=== PATIENT | female | born 1990 | race American Indian/Alaskan Native ===

== ENCOUNTER 2016-11-03 12:29 | Emergency (ER) | payer SELFPAY ==
[2016-11-03 14:10] LABS: Basophils % (Auto) 1.2 % (0.0-1.8); Eosinophils % (Auto) 1.5 % (0.0-4.3); Hematocrit 36.6 % (30.3-42.9); Hemoglobin 11.8 gm/dl (10.1-14.3); Mean Corpuscular HGB Conc 32 % (30-34); Mean Corpuscular Volume 78 fl (79-97); Platelet Count 304 K/mm3 (140-440); Red Cell Distribution Width 15.8 % (13.2-15.2); White Blood Count 5.5 K/mm3 (4.5-11.0)
[2016-11-03 14:14] LABS: Mean Corpuscular Hemoglobin 25 pg (28-32)
[2016-11-03 14:21] LABS: Alanine Aminotransferase 8 units/L (7-56); Albumin 3.7 g/dL (3.9-5); Albumin/Globulin Ratio 0.9 %; Alkaline Phosphatase 65 units/L (35-129); Anion Gap 14 mmol/L; BUN/Creatinine Ratio 11.66; Blood Urea Nitrogen 7 mg/dL (7-17); Carbon Dioxide 22 mmol/L (22-30); Chloride 103.5 mmol/L (98-107); Glucose 90 mg/dL (65-100); Lipase 39 units/L (13-60); Potassium 3.9 mmol/L (3.6-5.0); Sodium 136 mmol/L (137-145); Total Protein 7.7 g/dL (6.3-8.2)
--- NOTE | 2016-11-03 15:41 | Ultrasound Report ---
ULTRASOUND OB LESS THAN 14 WEEKS - TRANSABDOMINAL AND TRANSVAGINAL INDICATION: Abdominal pain. Positive uterine test. COMPARISON: None similar at this institution. FINDINGS: Transabdominal and transvaginal pelvic sonography performed in this patient with LMP of 09/16/2016 and estimated menstrual age of 6 weeks and 6 days. An anteverted, gravid uterus measuring approximately 9.3 x 5.1 x 6.7 cm demonstrates a single, live intrauterine gestation with heart rate of 109 beats per minute. Cervix appears closed. Small nabothian cyst. Yolk sac measures 3 mm. Mean crown-rump length of 0.4 cm corresponds to 6 weeks and 1 day. Unremarkable right ovary measures 2.6 x 1.4 x 2.6 cm. Left ovary is 4.2 x 2.3 x 2.7 cm with a 2.2 cm complex/hemorrhagic cyst or corpus luteum. Small subchorionic hemorrhage questioned. CONCLUSION: 1. Single, live intrauterine gestation with an ultrasound estimated age of 6 weeks and 1 day and ZACHARY of 06/28/2017. 2. Few other findings, as above. Thank you for the opportunity to participate in this patient's care.
[2016-11-03 19:19] VITALS: BP 114/76
== END 2016-11-03 19:18 | disposition home or self-care (01) ==
LOC: ED 12:29
DX: Z34.91 Encounter for supervision of normal pregnancy, unspecified, first trimester (principal); Z3A.01 Less than 8 weeks gestation of pregnancy
CPT/HCPCS: 36415; 76801; 76817; 80053; 83690; 84702; 84703; 85025

== ENCOUNTER 2016-12-06 23:31 | Emergency (ER) | payer SELFPAY ==
[2016-12-07 00:48] LABS: Basophils % (Auto) 1.2 % (0.0-1.8); Eosinophils % (Auto) 3.2 % (0.0-4.3); Hematocrit 36.3 % (30.3-42.9); Hemoglobin 11.8 gm/dl (10.1-14.3); Mean Corpuscular HGB Conc 33 % (30-34); Mean Corpuscular Volume 78 fl (79-97); Platelet Count 301 K/mm3 (140-440); Red Blood Count 4.64 M/mm3 (3.65-5.03); Red Cell Distribution Width 17.2 % (13.2-15.2); White Blood Count 6.8 K/mm3 (4.5-11.0)
[2016-12-07 00:50] LABS: Mean Corpuscular Hemoglobin 26 pg (28-32)
[2016-12-07 03:36] VITALS: BP 123/76
[2016-12-07 03:55] LABS: Bilirubin,Urine NEG (Negative); Blood,Urine LG (Negative); Ketones,Urine NEG (Negative); Leukocyte Esterase,Urine SM (Negative); Mucus,Urine FEW /HPF; Nitrite,Urine NEG (Negative); Protein,Urine <15 mg/dL mg/dL (Negative); Urobilinogen,Urine < 2.0 mg/dL (<2.0)
[2016-12-07] MEDS ORDERED: TYLENOL PO ONE (04:02)
--- NOTE | 2016-12-07 04:05 | Emergency Department Report ---
HPI - General Chief Complaint: Vaginal Bleeding Time Seen by Provider: 12/07/16 03:07 - [facility] HPI: Room 8 The patient is a 26-year-old female presenting with a chief complaint of vaginal bleeding. Patient states she is approximately 12 weeks and for the past 5-6 days she's had vaginal bleeding. The patient states for 2 days the bleeding was heavy but has now become order desk clerk. The patient states she does not use sanitary napkins. The patient states today she developed intermittent lower abdominal pain. History was obtained with the assistance of the language line for Guamanian translation Location: Pelvis Duration: 5-6 days Quality: Cramping Severity: Moderate Modifying factors: [see above] Context: [see above] Mode of transportation: [not driving] ED Past Medical Hx - Past Medical History Previous Medical History?: No - Surgical History Past Surgical History?: No - Family History Family history: no significant - Social History Smoking Status: Never Smoker Substance Use Type: None - Medications Home Medications: Home Medications Medication Instructions Recorded Confirmed Last Taken Type HYDROcodone/APAP 5-325 [[place] 1 - 2 each PO Q6HR PRN #14 tablet 12/07/16 Unknown Rx 5/325] Ibuprofen [Motrin 800 MG tab] 800 mg PO Q8HR PRN #20 tablet 12/07/16 Unknown Rx ED Review of Systems ROS: Stated complaint: VAGINAL BLEEDING/12WKS Other details as noted in HPI Comment: All other systems reviewed and negative Constitutional: denies: chills, fever Eyes: denies: eye pain, eye discharge, vision change ENT: denies: ear pain, throat pain Respiratory: denies: cough, shortness of breath, wheezing Cardiovascular: denies: chest pain, palpitations Endocrine: no symptoms reported Gastrointestinal: abdominal pain Genitourinary: abnormal menses Musculoskeletal: denies: back pain, joint swelling, arthralgia Skin: denies: rash, lesions Neurological: denies: headache, weakness, paresthesias Psychiatric: denies: anxiety, depression Hematological/Lymphatic: denies: easy bleeding, easy bruising Physical Exam - Physical Exam Vital Signs: Vital Signs 12/06/16 12/07/16 23:45 03:36 Temperature 98.6 F Pulse Rate 97 H 75 Respiratory 20 13 Rate Blood Pressure 125/80 Blood Pressure 123/76 [Left] O2 Sat by Pulse 100 100 Oximetry Physical Exam: GENERAL: The patient is well-developed well-nourished female lying on stretcher not appearing to be in acute distress. [] HEENT: Normocephalic. Atraumatic. Extraocular motions are intact. Patient has moist mucous membranes. NECK: Supple. Trachea midline CHEST/LUNGS: Clear to auscultation. There is no respiratory distress noted. HEART/CARDIOVASCULAR: Regular. There is no tachycardia. There is no gallop rub or murmur. ABDOMEN: Abdomen is soft, with mild suprapubic discomfort to palpation. Patient has normal bowel sounds. There is no abdominal distention. SKIN: There is no rash. There is no edema. There is no diaphoresis. And gait. MUSCULOSKELETAL: There is no evidence of acute injury. ED Course Vital Signs 12/06/16 12/07/16 23:45 03:36 Temperature 98.6 F Pulse Rate 97 H 75 Respiratory 20 13 Rate Blood Pressure 125/80 Blood Pressure 123/76 [Left] O2 Sat by Pulse 100 100 Oximetry ED Medical Decision Making - Lab Data Result diagrams: 12/07/16 00:15 Laboratory Tests 12/06/16 12/07/16 12/07/16 00:15 00:15 00:15 WBC 6.8 RBC 4.64 Hgb 11.8 Hct 36.3 MCV 78 L MCH 26 L MCHC 33 RDW 17.2 H Plt Count 301 Lymph % (Auto) 37.5 H [place] % (Auto) 9.8 H Eos % (Auto) 3.2 Baso % (Auto) 1.2 Lymph # 2.6 [place] # 0.7 Eos # 0.2 Baso # 0.1 Seg Neutrophils % 48.3 Seg Neutrophils # 3.3 HCG, Quant 2023 H Urine Color Urine Turbidity Urine pH Ur Specific [place] Urine Protein Urine Glucose (UA) Urine Ketones Urine Blood Urine Nitrite Urine Bilirubin Urine Urobilinogen Ur Leukocyte Esterase Urine WBC (Auto) Urine RBC (Auto) U Epithel Cells (Auto) Urine Mucus Blood Type B POSITIVE MICAH Antibody Screen Negative 12/07/16 03:36 WBC RBC Hgb Hct MCV MCH MCHC RDW Plt Count Lymph % (Auto) [place] % (Auto) Eos % (Auto) Baso % (Auto) Lymph # [place] # Eos # Baso # Seg Neutrophils % Seg Neutrophils # HCG, Quant Urine Color Yellow Urine Turbidity Clear Urine pH 6.0 Ur Specific [place] 1.015 Urine Protein <15 mg/dl Urine Glucose (UA) Neg Urine Ketones Neg Urine Blood Lg Urine Nitrite Neg Urine Bilirubin Neg Urine Urobilinogen < 2.0 Ur Leukocyte Esterase Sm Urine WBC (Auto) 8.0 H Urine RBC (Auto) 24.0 U Epithel Cells (Auto) 1.0 Urine Mucus Few Blood Type MICAH Antibody Screen - Radiology Data Radiology results: report reviewed (pelvic ultrasound), image reviewed (pelvic ultrasound) Pelvic ultrasound (read by radiologist)-empty intrauterine gestational sac corresponding to estimated gestational age of 8 weeks and 1 day. This is in the lower uterine segment. There is no detectable pole, yolk sac or cardiac activity. Blighted ovum is suspected. - Medical Decision Making I suspect the patient is having an inevitable /incomplete given the fact that the patient had cardiac activity seen on her previous ultrasound performed 11/03/2016 and at that time had a serum hCG of over 26,000 and now her ultrasound reveals an empty gestational sac without cardiac activity and an hCG just over 2000. This information was expressed to the patient with use of the which line translation for Guamanian. The patient verbalized understanding and no longer had any questions. The patient understands that she must follow-up with an [employer]ATIVE SERVICES [employer]ODUCER - Differential Diagnosis threatened , incomplete , spontaneous , UTI Critical care attestation.: If time is entered above; I have spent that time in minutes in the direct care of this critically ill patient, excluding procedure time. ED Disposition Clinical Impression: UTI (urinary tract infection), Inevitable spontaneous Disposition: - TO HOME OR SELFCARE Is pt being admited?: No Does the pt Need Aspirin: No Condition: Stable Instructions: Spontaneous Miscarriage (ED) Additional Instructions: Return to the emergency department immediately should you develop worsening symptoms, fever, inability to tolerate food or liquid or any other concerns. Prescriptions: HYDROcodone/APAP 5-325 [[place] 5/325] 1 - 2 each PO Q6HR PRN #14 tablet PRN Reason: Pain Ibuprofen [Motrin 800 MG tab] 800 mg PO Q8HR PRN #20 tablet PRN Reason: Pain Referrals: [facility] [Outside] - 3-5 Days KIAN TITUS MD [Staff Physician] - ANDREW (Dr. Titus is an CREATIVE SERVICES PRODUCER. Please follow up with her for further evaluation) Time of Disposition: 05:56
--- NOTE | 2016-12-07 04:25 | Ultrasound Report ---
FINAL REPORT PROCEDURE: US OB \T\lt; = 14 WEEKS FETUS TECHNIQUE: Real-time transabdominal sonography of the uterus, placenta, amniotic fluid, adnexa, and fetus was performed with image documentation. Measurements were obtained to determine age/size. M-mode Doppler was used to document heartbeat. CPT 83037 HISTORY: vaginal bleeding COMPARISON: No prior studies are available for comparison. FINDINGS: There is an intrauterine gestational sac in the lower uterine segment measuring 30 millimeters. This corresponds to an estimated gestational age of 8 weeks 1 day. However, no yolk sac, pole or cardiac activity is seen. This could be blighted ovum. Uterus measures 9.8 x 5.6 x 5.9 centimeters. Right ovary measures 2.5 x 2 x 1.5 centimeters. Left ovary measures 3 x 1.7 x 1.5 centimeters. There is no ovarian torsion or mass. There is no evidence of ectopic . There is no free pelvic fluid. IMPRESSION: Empty intrauterine gestational sac corresponding to estimated gestational age of 8 weeks and 1 day. This is in the lower uterine segment. There is no detectable pole, yolk sac or cardiac activity. Blighted ovum is suspected.
--- NOTE | 2016-12-07 05:40 | Ultrasound Report ---
FINAL REPORT PROCEDURE: US OB TRANSVAGINAL TECHNIQUE: Real-time transvaginal sonography of the uterus, placenta, amniotic fluid, adnexa, and fetus was performed with image documentation. Measurements were obtained to determine age/size. M-mode Doppler was used to document heartbeat. CPT 22909 HISTORY: vaginal bleeding COMPARISON: No prior studies are available for comparison. FINDINGS: There is an intrauterine gestational sac in the lower uterine segment measuring 30 millimeters. This corresponds to an estimated gestational age of 8 weeks 1 day. However, no yolk sac, pole or cardiac activity is seen. This could be blighted ovum. Uterus measures 9.8 x 5.6 x 5.9 centimeters. Right ovary measures 2.5 x 2 x 1.5 centimeters. Left ovary measures 3 x 1.7 x 1.5 centimeters. There is no ovarian torsion or mass. There is no evidence of ectopic . There is no free pelvic fluid. IMPRESSION: Empty intrauterine gestational sac corresponding to estimated gestational age of 8 weeks and 1 day. This is in the lower uterine segment. There is no detectable pole, yolk sac or cardiac activity. Blighted ovum is suspected.
== END 2016-12-07 06:24 | disposition home or self-care (01) ==
LOC: ED 23:31
DX: O23.41 Unspecified infection of urinary tract in pregnancy, first trimester (principal); Z3A.08 8 weeks gestation of pregnancy
CPT/HCPCS: 36415; 76801; 76817; 81001; 84702; 85025; 86850; 86900; 86901; 99284

== ENCOUNTER 2017-02-24 15:15 | Emergency (ER) | payer SELFPAY ==
[2017-02-24 17:07] LABS: Basophils % (Auto) 0.9 % (0.0-1.8); Eosinophils % (Auto) 5.1 % (0.0-4.3); Hematocrit 35.7 % (30.3-42.9); Hemoglobin 11.5 gm/dl (10.1-14.3); Mean Corpuscular HGB Conc 32 % (30-34); Mean Corpuscular Volume 76 fl (79-97); Platelet Count 329 K/mm3 (140-440); Red Blood Count 4.71 M/mm3 (3.65-5.03); Red Cell Distribution Width 15.9 % (13.2-15.2); White Blood Count 7.2 K/mm3 (4.5-11.0)
[2017-02-24 17:15] LABS: Mean Corpuscular Hemoglobin 24 pg (28-32)
--- NOTE | 2017-02-24 22:44 | Emergency Department Report ---
ED Female HPI - General Chief complaint: Vaginal Bleeding Stated complaint: , VAGINAL BLEEDING Time Seen by Provider: 02/24/17 22:42 Source: patient, family Mode of arrival: Ambulatory Limitations: Language Barrier - History of Present Illness Initial comments: 26-year-old female past medical history history of one miscarriage presents with complaint of vaginal spotting since yesterday morning with some intermittent clots. Patient denies fevers chills, dysuria or hematuria chest pain palpitations or back pain. States she has had some nausea. Accompanied by . Awake alert and oriented 3 not in acute distress. Last menstrual period January 08. Had a miscarriage earlier this year. States bleeding has decreased since yesterday. MD Complaint: vaginal bleeding, pelvic pain Onset/Timin -: days(s) Are you Now?: Yes Last Menstrual Period: 01/08/17 EDC: 10/15/17 Associated Symptoms: vaginal bleeding - Related Data Previous Rx's Medication Instructions Recorded Last Taken Type HYDROcodone/APAP 5-325 [[place] 1 - 2 each PO Q6HR PRN #14 tablet 12/07/16 Unknown Rx 5/325] Ibuprofen [Motrin 800 MG tab] 800 mg PO Q8HR PRN #20 tablet 12/07/16 Unknown Rx Doxylamine Succinate [Unisom] 25 mg PO QHS PRN #30 tablet 02/25/17 Unknown Rx Nida Root [Nida] 250 mg PO QDAY PRN #30 capsule 02/25/17 Unknown Rx Nitrofurantoin [place]/M-Cryst 100 mg PO Q12HR #14 capsule 02/25/17 Unknown Rx [Macrobid CAP] Pyridoxine HCl 25 mg PO Q8H PRN #90 tablet 02/25/17 Unknown Rx metroNIDAZOLE [Flagyl TAB] 500 mg PO Q12HR #14 tab 02/25/17 Unknown Rx Allergies Allergy/AdvReac Type Severity Reaction Status Date / Time No Known Allergies Allergy Verified 12/07/16 03:37 ED Review of Systems ROS: Stated complaint: , VAGINAL BLEEDING Other details as noted in HPI Constitutional: denies: chills, fever Eyes: denies: eye pain, eye discharge, vision change ENT: denies: ear pain, throat pain Respiratory: denies: cough, shortness of breath, wheezing Cardiovascular: denies: chest pain, palpitations Endocrine: no symptoms reported Gastrointestinal: denies: abdominal pain, nausea, diarrhea Genitourinary: as per HPI. denies: urgency, dysuria, discharge Musculoskeletal: denies: back pain, joint swelling, arthralgia Skin: denies: rash, lesions Neurological: denies: headache, weakness, paresthesias Psychiatric: denies: anxiety, depression Hematological/Lymphatic: denies: easy bleeding, easy bruising ED Past Medical Hx - Past Medical History Previous Medical History?: Yes Additional medical history: Miscarriage December 06, 2016 - Surgical History Past Surgical History?: No - Social History Smoking Status: Never Smoker Substance Use Type: None - Medications Home Medications: Home Medications Medication Instructions Recorded Confirmed Last Taken Type HYDROcodone/APAP 5-325 [[place] 1 - 2 each PO Q6HR PRN #14 tablet 12/07/16 Unknown Rx 5/325] Ibuprofen [Motrin 800 MG tab] 800 mg PO Q8HR PRN #20 tablet 12/07/16 Unknown Rx Doxylamine Succinate [Unisom] 25 mg PO QHS PRN #30 tablet 02/25/17 Unknown Rx Nida Root [Nida] 250 mg PO QDAY PRN #30 capsule 02/25/17 Unknown Rx Nitrofurantoin [place]/M-Cryst 100 mg PO Q12HR #14 capsule 02/25/17 Unknown Rx [Macrobid CAP] Pyridoxine HCl 25 mg PO Q8H PRN #90 tablet 02/25/17 Unknown Rx metroNIDAZOLE [Flagyl TAB] 500 mg PO Q12HR #14 tab 02/25/17 Unknown Rx ED Physical Exam - General Limitations: Language Barrier General appearance: alert, in no apparent distress - Head Head exam: Present: atraumatic, normocephalic - Eye Eye exam: Present: normal appearance, PERRL, EOMI - ENT ENT exam: Present: mucous membranes moist - Neck Neck exam: Present: normal inspection, full ROM - Respiratory Respiratory exam: Present: normal lung sounds bilaterally. Absent: respiratory distress - Cardiovascular Cardiovascular Exam: Present: regular rate, normal rhythm. Absent: systolic murmur, diastolic murmur, rubs, gallop - GI/Abdominal GI/Abdominal exam: Present: soft, normal bowel sounds - External exam: Present: normal external exam Speculum exam: Present: vaginal bleeding (scant amount of blood in vaginal vault ) Bi-manual exam: Present: normal bi-manual exam - Extremities Exam Extremities exam: Present: normal inspection - Back Exam Back exam: Present: normal inspection - Neurological Exam Neurological exam: Present: alert, oriented X3 - Psychiatric Psychiatric exam: Present: normal affect, normal mood - Skin Skin exam: Present: warm, dry, intact, normal color. Absent: rash ED Course Vital Signs 02/24/17 02/25/17 16:27 01:18 Temperature 97.8 F 99.1 F Pulse Rate 78 84 Respiratory 16 18 Rate Blood Pressure 118/75 Blood Pressure 118/74 [Right] O2 Sat by Pulse 100 99 Oximetry ED Medical Decision Making - Lab Data Result diagrams: 02/24/17 16:38 - Medical Decision Making A/P: , vaginal bleeding, morning sickness, BV, asymptomatic bacteuria in 1-ultrasound shows single live IUP with active heart rate 2-urinalysis unremarkable however has patient has trace leukocytes will treat empirically for possible asymptomatic bacteriuria. Case discussed with Dr. Molina 3-follow up with [facility] 4- I advised patient to return to the ED for heavy vaginal bleeding which persists abdominal pain and inability to tolerate any liquid or fluid by mouth, fevers and chills, dysuria patient and stated they understood my instructions Critical care attestation.: If time is entered above; I have spent that time in minutes in the direct care of this critically ill patient, excluding procedure time. ED Disposition Clinical Impression: Morning sickness, Vaginal bleeding in , Bacterial vaginosis Qualifiers: Weeks of gestation: less than 8 weeks Qualified Code(s): Z3A.01 - Less than 8 weeks gestation of Disposition: DC-01 TO HOME OR SELFCARE Is pt being admited?: No Does the pt Need Aspirin: No Condition: Stable Instructions: Threatened Miscarriage (ED), Morning Sickness (ED), (ED ), Bacterial Vaginosis (ED) Prescriptions: Doxylamine Succinate [Unisom] 25 mg PO QHS PRN #30 tablet PRN Reason: Nausea Nida Root [Nida] 250 mg PO QDAY PRN #30 capsule PRN Reason: Nausea metroNIDAZOLE [Flagyl TAB] 500 mg PO Q12HR #14 tab Nitrofurantoin [place]/M-Cryst [Macrobid CAP] 100 mg PO Q12HR #14 capsule Pyridoxine HCl 25 mg PO Q8H PRN #90 tablet PRN Reason: Nausea Referrals: [facility] [Provider Group] - 3-5 Days [facility] [Provider Group] - 3-5 Days Forms: Accompanied Note, Work/School Release Form(ED), STI Treatment and Prevention
--- NOTE | 2017-02-25 00:07 | Ultrasound Report ---
FINAL REPORT PROCEDURE: US OB TRANSVAGINAL TECHNIQUE: Real-time transabdominal and transvaginal sonography of the uterus, placenta, amniotic fluid, adnexa, and fetus was performed with image documentation. Measurements were obtained to determine age/size. M-mode Doppler was used to document heartbeat. CPT 50767 and 57260 HISTORY: 4 weeks preg w/vag bleed and crampy pain COMPARISON: No prior studies are available for comparison. FINDINGS: ADDITIONAL GESTATION: None. CRL: 8 mm, which corresponds to a gestational age of: 6 weeks, 5 days. Yolk Sac: Normal. Embryonic Cardiac Activity: 135 beats per minute Gestational Sac: Normal. Amniotic fluid: Normal. Cervix: Normal. Right Ovary: There is a dominant complex cyst measuring 24 millimeters Left Ovary: Not visualized on this study Estimated delivery date: 10/15/2017 Uterus and adnexa: Normal. IMPRESSION: 1. Single live intrauterine gestation at approximately 6 weeks, 5 days. 2. EDC by US 10/15/2017 3. Complete anatomic survey at 18-20 weeks suggested.
--- NOTE | 2017-02-25 00:08 | Ultrasound Report ---
FINAL REPORT PROCEDURE: Ultrasound obstetrical transabdominal and transvaginal TECHNIQUE: Real-time transabdominal and transvaginal sonography of the uterus, placenta, amniotic fluid, adnexa, and fetus was performed with image documentation. Measurements were obtained to determine age/size. M-mode Doppler was used to document heartbeat. CPT 63403 and 94710 HISTORY: 4 weeks preg w/vag bleed and crampy pain COMPARISON: No prior studies are available for comparison. FINDINGS: ADDITIONAL GESTATION: None. CRL: 8 mm, which corresponds to a gestational age of: 6 weeks, 5 days. Yolk Sac: Normal. Embryonic Cardiac Activity: 135 beats per minute Gestational Sac: Normal. Amniotic fluid: Normal. Cervix: Normal. Right Ovary: There is a dominant complex cyst measuring 24 millimeters Left Ovary: Not visualized on this study Estimated delivery date: 10/15/2017 Uterus and adnexa: Normal. IMPRESSION: 1. Single live intrauterine gestation at approximately 6 weeks, 5 days. 2. EDC by US 10/15/2017 3. Complete anatomic survey at 18-20 weeks suggested.
[2017-02-25 00:38] LABS: Bilirubin,Urine NEG (Negative); Blood,Urine SM (Negative); Ketones,Urine NEG (Negative); Leukocyte Esterase,Urine TR (Negative); Mucus,Urine FEW /HPF; Nitrite,Urine NEG (Negative); Protein,Urine <15 mg/dL mg/dL (Negative)
[2017-02-25 01:20] VITALS: BP 118/74
== END 2017-02-25 02:05 | disposition home or self-care (01) ==
LOC: ED 15:15
DX: O46.91 Antepartum hemorrhage, unspecified, first trimester (principal); O23.591 Infection of other part of genital tract in pregnancy, first trimester; N76.0 Acute vaginitis; Z3A.01 Less than 8 weeks gestation of pregnancy
CPT/HCPCS: 36415; 76801; 76817; 81001; 84702; 85025; 86850; 86900; 86901; 87086; 87210; 87591; 99284

== ENCOUNTER 2017-10-12 12:24 | Inpatient (IN) | payer SELFPAY ==
--- NOTE | 2017-10-12 15:00 | Ultrasound Report ---
ULTRASOUND BIOPHYSICAL PROFILE: History: well being Technique: Transabdominal ultrasound with Doppler interrogation. 2 - breathing movements 2 - movements 2 - posture and tone 2 - Qualitative amniotic fluid volume 8 - TOTAL SCORE OF POSSIBLE 8 Heart Rate (bpm) 160
--- NOTE | 2017-10-12 15:00 | Ultrasound Report ---
ULTRASOUND OB LIMITED History: well being Technique: Transabdominal ultrasound with Doppler interrogation. Gestation: Single Position: Cephalic Amniotic Fluid: Decreased MEREDITH = 5.2 cm Heart Rate: 160 BPM
[2017-10-12] MEDS ORDERED: BRETHINE SUB-Q PRN (15:35)
[2017-10-12] MEDS ORDERED: ePHEDrine SULFATE IV PRN (15:35)
[2017-10-12] MEDS ORDERED: NARCAN 0.4 MG/1 ML IV PRN (15:35)
[2017-10-12] MEDS ORDERED: PHENERGAN PO PRN (15:35)
[2017-10-12] MEDS ORDERED: BRETHINE IVP PRN (15:35)
[2017-10-12] MEDS ORDERED: ZOFRAN IV PRN (15:35)
[2017-10-12] MEDS ORDERED: MINERAL OIL PO PRN (15:35)
[2017-10-12] MEDS ORDERED: SUBLIMAZE IV PRN (15:35)
--- NOTE | 2017-10-12 15:58 | History and Physical Report ---
History of Present Illness Date of examination: 10/12/17 Chief complaint: Decreased movement History of present illness: Pt is a 26yo BF EDC 10/12/17; EGA 40 0/7 weeks presents to L&D complaining of decreased movement. BPP was 8/8 with MEREDITH 5.2 She will therefore be admitted for induction of labor. She received care at [facility] since 24 weeks and course was unremarkable. records are available and GBS is Positive. Past History Past Medical History: hematologic disorders (sickle cell trait) Past Surgical History: no surgical history Family/Genetic History: none Social history: no significant social history, - Obstetrical History Expected Date of Delivery: 10/12/17 Actual Gestation: 40 Week(s) 0 Day(s) : 2 Medications and Allergies Allergies Allergy/AdvReac Type Severity Reaction Status Date / Time No Known Allergies Allergy Verified 12/07/16 03:37 Home Medications Medication Instructions Recorded Confirmed Last Taken Type HYDROcodone/APAP 5-325 [[place] 1 - 2 each PO Q6HR PRN #14 tablet 12/07/16 Unknown Rx 5/325] Ibuprofen [Motrin 800 MG tab] 800 mg PO Q8HR PRN #20 tablet 12/07/16 Unknown Rx Doxylamine Succinate [Unisom] 25 mg PO QHS PRN #30 tablet 02/25/17 Unknown Rx Nida Root [Nida] 250 mg PO QDAY PRN #30 capsule 02/25/17 Unknown Rx Nitrofurantoin [place]/M-Cryst 100 mg PO Q12HR #14 capsule 02/25/17 Unknown Rx [Macrobid CAP] Vit No.130/Iron/Folic 1 each PO QDAY #30 tablet 02/25/17 Unknown Rx [ Tablet] Pyridoxine HCl (Vitamin B6) 25 mg PO Q8H PRN #90 tablet 02/25/17 Unknown Rx [Pyridoxine HCl] metroNIDAZOLE [Flagyl TAB] 500 mg PO Q12HR #14 tab 02/25/17 Unknown Rx Review of Systems All systems: negative - Vital Signs Vital signs: Vital Signs Pulse BP 85 129/80 10/12/17 12:47 10/12/17 12:47 Temp Pulse Resp BP Pulse Ox 97.8 F 192 H 14 129/80 81 L 10/12/17 13:32 10/12/17 15:14 10/12/17 13:32 10/12/17 12:47 10/12/17 15:14 - Physical Exam Breasts: Positive: deferred Cardiovascular: Regular rate Lungs: Positive: Clear to auscultation Abdomen: Positive: normal appearance Genitourinary (Female): Positive: normal external genitalia Vagina: Positive: normal moisture Uterus: Positive: enlarged Extremities: Positive: normal - Obstetrical FHR: category 1 Uterine Contraction Monitor Mode: External Cervical Dilatation: 0 Cervical Effacement Percentage: 50 station: -3 Uterine Contraction Pattern: Absent Results All other labs normal. Ultrasound: report reviewed Assessment and Plan - Patient Problems (1) 40 weeks gestation of Onset Date: 10/12/17 Current Visit: Yes Status: Acute Plan to address problem: A: IUP @ 40 0/7 weeks Oligohydramnios GBS Positive P: Admit to L&D for cervidil/pitocin induction of labor IV Ampicillin (2) Oligohydramnios without rupture of membranes in third trimester Onset Date: 10/12/17 Current Visit: Yes Status: Acute Qualifiers: Fetus number: single or unspecified fetus Qualified Code(s): O41.03X0 - Oligohydramnios, third trimester, not applicable or unspecified
[2017-10-12] MEDS ORDERED: PITOCin/NS 20 UNIT/1000ML DRIP 20 UNITS/1,000 ML BAG IV SCH (16:00)
[2017-10-12] MEDS ORDERED: PITOCin/NS 30 UNIT/500ML 30 UNITS/500 ML BAG IV SCH ×2 (16:00)
[2017-10-12] MEDS ORDERED: CERVIDIL VG ONE (16:35)
[2017-10-12] MEDS ORDERED: XYLOCAINE 2% INFILTRATI ONE (17:00)
[2017-10-12 17:33] LABS: Hematocrit 30.6 % (30.3-42.9); Hemoglobin 10.3 gm/dl (10.1-14.3); Mean Corpuscular HGB Conc 34 % (30-34); Mean Corpuscular Hemoglobin 24 pg (28-32); Mean Corpuscular Volume 72 fl (79-97); Platelet Count 309 K/mm3 (140-440); Red Blood Count 4.25 M/mm3 (3.65-5.03); Red Cell Distribution Width 17.2 % (13.2-15.2)
[2017-10-12] MEDS: LACTATED RINGERS 1,000 ML IV SCH (18:32)
[2017-10-12] MEDS ORDERED: AMBIEN PO PRN (20:53)
[2017-10-13] MEDS: STADOL IV PRN ×3 (01:03→05:50)
[2017-10-13] MEDS: LACTATED RINGERS 1,000 ML IV SCH (01:46)
[2017-10-13] MEDS ORDERED: XYLOCAINE 2% INFILTRATI ONE (06:19)
--- NOTE | 2017-10-13 06:47 | Procedure Note ---
OB Delivery Note - Delivery Date of Delivery: 10/13/17 Surgeon: AMITA MCGILL Estimated blood loss: 300cc - Vaginal Delivery presentation: vertex Delivery position: OA Delivery induction: cervidil Delivery augmentation: rupture of membranes Delivery monitor: external FHT, external uterine Route of delivery: Delivery placenta: spontaneous Delivery cord: 3 umbilical vessels Episiotomy: none Delivery laceration: 2nd degree (perineal and left labial) Delivery repair: vicryl Anesthesia: local Delivery comments: Infant delivered OA and placed on Mom's chest for [id number] bonding and delayed cord clamping. - Infant A at 1 minute: 8 at 5 minutes: 9 Infant Gender: Male ([id number])
[2017-10-13] MEDS ORDERED: ZOFRAN IV PRN (06:48)
[2017-10-13] MEDS ORDERED: TYLENOL PO PRN (06:48)
[2017-10-13] MEDS ORDERED: PHENERGAN PO PRN (06:48)
[2017-10-13] MEDS ORDERED: TUCKS PAD TP PRN (06:48)
[2017-10-13] MEDS ORDERED: BENADRYL PO PRN (06:48)
[2017-10-13] MEDS ORDERED: DULCOLAX PR PRN (06:48)
[2017-10-13] MEDS ORDERED: LANSINOH TP PRN (06:48)
[2017-10-13] MEDS ORDERED: MILK OF MAGNESIA PO PRN (06:48)
[2017-10-13] MEDS ORDERED: PHENERGAN PR PRN (06:48)
[2017-10-13] MEDS ORDERED: PITOCin/NS 20 UNIT/1000ML DRIP 20 UNITS/1,000 ML BAG IV SCH (07:00)
[2017-10-13] MEDS ORDERED: SODIUM CHLORIDE FLUSH SYRINGE 10 ML IV PRN (07:00)
[2017-10-13] MEDS: MOTRIN PO SCH ×2 (11:01→17:37)
[2017-10-13] MEDS: FEOSOL PO SCH ×2 (11:02→21:36)
[2017-10-13] MEDS: COLACE PO SCH ×2 (11:02→21:35)
[2017-10-13] MEDS: PRENATAL VITAMIN PO SCH (11:02)
[2017-10-13] MEDS ORDERED: DERMOPLAST TP PRN (11:30)
[2017-10-13] MEDS: NORCO 5/325 PO PRN (15:29)
[2017-10-13 19:19] LABS: Hematocrit 29.4 % (30.3-42.9); Hemoglobin 9.4 gm/dl (10.1-14.3)
[2017-10-14] MEDS: MOTRIN PO SCH ×4 (00:12→19:00)
[2017-10-14] MEDS ORDERED: BOOSTRIX IM ONE (06:00)
[2017-10-14] MEDS ORDERED: M-M-R II VACCINE SUB-Q ONE (06:48)
--- NOTE | 2017-10-14 09:24 | Progress Note ---
Assessment and Plan - Patient Problems (1) 40 weeks gestation of Onset Date: 10/12/17 Current Visit: Yes Status: Resolved (2) Oligohydramnios without rupture of membranes in third trimester Onset Date: 10/12/17 Current Visit: Yes Status: Resolved Qualifiers: Fetus number: single or unspecified fetus Qualified Code(s): O41.03X0 - Oligohydramnios, third trimester, not applicable or unspecified (3) (normal spontaneous vaginal delivery) Onset Date: 10/14/17 Current Visit: Yes Status: Resolved Plan to address problem: A: S/P - PPD #1 Doing well Asymptomatic anemia - stable P: May go home tomorrow. Subjective - Subjective Date of service: 10/14/17 Principal diagnosis: s/p - PPD #1 Interval history: Pt is feeling well without complaints. Bleeding improved. Patient reports: appetite normal, voiding normally, pain well controlled, flatus , ambulating normally, no dizzy ambulation, no nauseated : doing well, nursing well Objective - Vital Signs Latest vital signs: Vital Signs Temp Pulse Resp BP BP Pulse Ox 10/14/17 08:32 98.4 F 89 20 103/53 98 10/14/17 04:00 98.6 F 78 16 114/64 10/14/17 00:12 20 10/14/17 00:00 98.6 F 74 16 105/69 10/13/17 20:00 98.6 F 77 16 107/62 10/13/17 16:10 97.4 F L 80 18 113/67 10/13/17 11:35 98 F 75 18 110/69 Intake and Output 10/13/17 10/14/17 10/14/17 22:59 06:59 14:59 Intake Total 360 Balance 360 Intake: Oral 360 Other: Total, Intake Amount 120 # Voids Void 1 - Exam Breasts: Present: deferred Cardiovascular: Present: Regular rate Lungs: Present: Clear to auscultation Abdomen: Present: normal appearance Uterus: Present: normal, firm, fundal height below umbilicus Extremities: Present: normal - Labs Labs: Abnormal lab results 10/13/17 Range/Units 18:37 Hgb 9.4 L (10.1-14.3) gm/dl Hct 29.4 L (30.3-42.9) % Laboratory Tests 10/12/17 10/12/17 10/12/17 17:06 17:06 17:06 WBC 6.8 RBC 4.25 Hgb 10.3 Hct 30.6 MCV 72 L MCH 24 L MCHC 34 RDW 17.2 H Plt Count 309 RPR Nonreactive Blood Type B POSITIVE Antibody Screen Negative 10/13/17 18:37 WBC RBC Hgb 9.4 L Hct 29.4 L MCV MCH MCHC RDW Plt Count RPR Blood Type Antibody Screen
[2017-10-14] MEDS: PRENATAL VITAMIN PO SCH (09:51)
[2017-10-14] MEDS: NORCO 5/325 PO PRN (09:51)
[2017-10-14] MEDS: COLACE PO SCH (09:51)
[2017-10-14] MEDS: FEOSOL PO SCH (09:51)
[2017-10-15] MEDS: NORCO 5/325 PO PRN ×2 (00:01→06:11)
[2017-10-15] MEDS: COLACE PO SCH ×2 (00:01→09:21)
[2017-10-15] MEDS: FEOSOL PO SCH ×2 (00:01→09:21)
[2017-10-15] MEDS: MOTRIN PO SCH ×2 (03:02→13:06)
--- NOTE | 2017-10-15 08:31 | Discharge Summary ---
Providers - Providers Date of Admission: 10/12/17 12:25 Date of discharge: 10/15/17 Attending physician: AMITA MCGILL Primary care physician: AMITA MCGILL Hospitalization Reason for admission: induction of labor, IUP at term, other (Oligohydramnios) Delivery: Episiotomy: none Laceration: 2nd degree Other procedures: none complications: none Discharge diagnosis: IUP at term delivered [place] baby: male Hospital course: Unremarkable. Condition at discharge: Good Disposition: DC-01 TO HOME OR SELFCARE - Discharge Diagnoses (1) 40 weeks gestation of Status: Resolved (2) Oligohydramnios without rupture of membranes in third trimester Status: Resolved Qualifiers: Fetus number: single or unspecified fetus Qualified Code(s): O41.03X0 - Oligohydramnios, third trimester, not applicable or unspecified (3) (normal spontaneous vaginal delivery) Status: Resolved Plan - Discharge Medications Prescriptions: Ferrous Sulfate [Feosol 325 MG tab] 325 mg PO BID #60 tablet Ibuprofen [Motrin 600 MG tab] 600 mg PO Q6HR #30 tablet Vit-Fe Fumar-FA [ Vitamin] 1 each PO QDAY #30 tablet - Provider Discharge Summary Activity: routine, no sex for 6 weeks, no heavy lifting 4 weeks, no strenuous exercise Diet: routine Instructions: routine Additional instructions: [] Smoking cessation referral if applicable(refer to patient education folder for contact #) [] Refer to [facility] Booklet Call your doctor immediately for: * Fever > 100.5 * Heavy vaginal bleeding ( >1 pad per hour) * Severe persistent headache * Shortness of breath * Reddened, hot, painful area to leg or breast * Drainage or odor from incision. * Keep incision clean and dry at all times and follow doctor's instructions regarding bathing/showering - Follow up plan Follow up: AMITA MCGILL MD [Primary Care Provider] - 6 Weeks Forms: [facility] Discharge Summary
[2017-10-15] MEDS: PRENATAL VITAMIN PO SCH (09:21)
[2017-10-15 20:29] VITALS: BP 98/64
== END 2017-10-15 21:40 | disposition home or self-care (01) | DRG 775 ==
LOC: TRG 12:24 → LD 12:25 → TRG 12:25 → OB 10-13 08:59
PROVIDERS: ADMIT Obstetrics & Gynecology; ATTEND Obstetrics & Gynecology
PROC: 10E0XZZ Delivery of Products of Conception, External Approach (ICD-10-PCS; principal; 2017-10-13)
PROC: 0KQM0ZZ Repair Perineum Muscle, Open Approach (ICD-10-PCS; 2017-10-13)
PROC: 3E033VJ Introduction of Other Hormone into Peripheral Vein, Percutaneous Approach (ICD-10-PCS; 2017-10-13)
PROC: 3E0234Z Introduction of Serum, Toxoid and Vaccine into Muscle, Percutaneous Approach (ICD-10-PCS; 2017-10-14)
DX: O41.03X0 Oligohydramnios, third trimester, not applicable or unspecified (principal); Z3A.40 40 weeks gestation of pregnancy; Z37.0 Single live birth; Z23 Encounter for immunization; O99.824 Streptococcus B carrier state complicating childbirth; O70.1 Second degree perineal laceration during delivery; O99.02 Anemia complicating childbirth; D64.9 Anemia, unspecified
CPT/HCPCS: 36415; 59200; 76815; 76819; 85014; 85018; 85027; 86592; 86850; 86900; 86901; 99211; G0463; J0595; J2405; J2590; J3010; J7120

== ENCOUNTER 2019-04-19 14:45 | Outpatient (CLI) | payer SELFPAY ==
[2019-04-19 16:15] VITALS: BP 119/63
--- NOTE | 2019-04-19 19:22 | Ultrasound Report ---
ULTRASOUND OBSTETRIC LIMITED ULTRASOUND BIOPHYSICAL PROFILE INDICATION / CLINICAL INFORMATION: POST DATE. Clinical Gestational Age (GA): 40 weeks 0 days COMPARISON: None available. FINDINGS: BREATHING MOVEMENT = 2 GROSS BODY MOVEMENT = 2 TONE = 2 QUALITATIVE AMNIOTIC FLUID VOLUME = 2 TOTAL BIOPHYSICAL SCORE = 8/8 HEART RATE (beats per minute): 131 AMNIOTIC FLUID INDEX (cm) = 10.1 (normal = 7-24 cm) PRESENTATION: Cephalic. ADDITIONAL FINDINGS: None. IMPRESSION: 1. Biophysical Score = 8/8 2. Normal amniotic fluid index of 10.1 cm. Signer Name: Carri Headley MD Signed: 04/19/2019 7:18 PM Workstation Name: [id number]
== END 2019-04-19 18:01 | disposition home or self-care (01) ==
LOC: TRG 14:45
PROVIDERS: ATTEND Obstetrics & Gynecology
DX: O47.1 False labor at or after 37 completed weeks of gestation (principal); Z3A.41 41 weeks gestation of pregnancy
CPT/HCPCS: 76815; 76819

== ENCOUNTER 2019-04-20 19:21 | Inpatient (IN) | payer OTHER ==
[2019-04-20] MEDS ORDERED: BUTORPHANOL 2 MG/1 ML INJ IV PRN (20:59)
[2019-04-20] MEDS ORDERED: TERBUTALINE 1 MG/1 ML INJ SUB-Q PRN ×2 (20:59→21:08)
[2019-04-20] MEDS ORDERED: MINERAL OIL 30 ML ORAL LIQD PO PRN ×2 (20:59→21:08)
[2019-04-20] MEDS ORDERED: ePHEDrine SULFATE 50 MG/1 ML INJ IV PRN ×2 (20:59→21:08)
[2019-04-20] MEDS ORDERED: AMPICILLIN/NS 2 GM/100 ML 2 GM/100 ML BAG IV ONE (20:59)
[2019-04-20] MEDS ORDERED: fentaNYL 100 MCG/2 ML INJ IV PRN (20:59)
[2019-04-20] MEDS ORDERED: LIDOCAINE (2%) 20 MG/1 ML VIAL 20 ML MDV INFILTRATI ONE ×2 (20:59→21:08)
[2019-04-20] MEDS ORDERED: OXYTOCIN 20 UNIT/1000ML DRIP 20 UNITS/1,000 ML BAG IV SCH ×2 (21:00→22:00)
[2019-04-20] MEDS ORDERED: LACTATED RINGERS 1,000 ML IV SCH (21:00)
--- NOTE | 2019-04-20 21:07 | History and Physical Report ---
History of Present Illness Date of examination: 04/20/19 Date of admission: 04/20/19 19:27 Chief complaint: Induction of labor History of present illness: Pt is a 28yo BF EDC 04/19/19; EGA 40 1/7 weeks presents for induction of labor. She received late care at [facility] since 24 weeks and course has been unremarkable. records are available and GBS is Positive. Past History Past Medical History: hematologic disorders (anemia), other (sickle cell trait) Past Surgical History: no surgical history Social history: no significant social history, - Obstetrical History Expected Date of Delivery: 04/19/19 Actual Gestation: 40 Week(s) 2 Day(s) : 3 Medications and Allergies Allergies Allergy/AdvReac Type Severity Reaction Status Date / Time No Known Allergies Allergy Verified 12/07/16 03:37 Home Medications Medication Instructions Recorded Confirmed Last Taken Type Ferrous Sulfate [Feosol 325 MG tab] 325 mg PO BID #60 tablet 10/15/17 04/20/19 1 Day Ago Rx ~04/19/19 ALBUTEROL Inhaler(NF) [VENTOLIN 2 puff IH BID #1 inha 04/06/18 04/20/19 Unknown Rx Inhaler(NF)] Review of Systems All systems: negative - Vital Signs Vital signs: Vital Signs Pulse BP 100 H 123/72 04/20/19 20:00 04/20/19 20:00 Temp Pulse Resp BP Pulse Ox 98.0 F 100 H 17 123/72 04/20/19 20:04 04/20/19 20:04 04/20/19 20:04 04/20/19 20:04 - Physical Exam Breasts: Positive: deferred Cardiovascular: Regular rate Lungs: Positive: Clear to auscultation Abdomen: Positive: normal appearance Genitourinary (Female): Positive: normal external genitalia Vagina: Positive: normal moisture Uterus: Positive: enlarged Extremities: Positive: normal - Obstetrical FHR: category 1 Uterine Contraction Monitor Mode: External Cervical Dilatation: 0 (per nurse) Cervical Effacement Percentage: 50 (per nurse) station: -2 Uterine Contraction Pattern: Absent Results Result Diagrams: 04/20/19 20:40 All other labs normal. Assessment and Plan - Patient Problems (1) 40 weeks gestation of Onset Date: 04/20/19 Current Visit: No Status: Resolved Plan to address problem: A: IUP @ 40 1/7 weeks GBS Positive P: Admit to L&D for cervidil/pitocin induction of labor IV Ampicillin (2) Chronic blood loss anemia Onset Date: 04/21/19 Current Visit: Yes Status: Chronic
[2019-04-20] MEDS ORDERED: TERBUTALINE 1 MG/1 ML INJ IVP PRN (21:08)
[2019-04-20] MEDS ORDERED: DINOPROSTONE 10 MG VAG SUPP VG ONE (21:08)
[2019-04-20] MEDS ORDERED: ONDANSETRON 4 MG/2 ML INJ IV PRN (21:08)
[2019-04-20] MEDS ORDERED: ZOLPIDEM 5 MG TAB PO PRN (21:08)
[2019-04-20 21:32] LABS: Hematocrit 30.8 % (30.3-42.9); Hemoglobin 9.5 gm/dl (10.1-14.3); Mean Corpuscular Volume 70 fl (79-97); Red Blood Count 4.43 M/mm3 (3.65-5.03)
[2019-04-20 21:33] LABS: Mean Corpuscular HGB Conc 31 % (30-34); Platelet Count 302 K/mm3 (140-440); Red Cell Distribution Width 18.2 % (13.2-15.2)
[2019-04-20] MEDS: LACTATED RINGERS 1,000 ML IV SCH (21:43)
[2019-04-20] MEDS ORDERED: OXYTOCIN DRIP 30 UNITS/500 ML BAG IV SCH ×2 (22:00)
[2019-04-21] MEDS ORDERED: ACETAMINOPHEN 325 MG TAB PO ONE (04:21)
[2019-04-21] MEDS: AMPICILLIN/NS 1 GM/50 ML 1 GM/50 ML BAG IV SCH ×2 (10:55→15:04)
[2019-04-21] MEDS: LACTATED RINGERS 1,000 ML IV SCH (15:05)
[2019-04-21] MEDS ORDERED: DEXMEDETOMIDINE 200 MCG/2 ML VIAL IV ONE (15:17)
[2019-04-21] MEDS ORDERED: SODIUM CHLORIDE P/F VIAL 10 ML 10 ML ONE (15:17)
[2019-04-21] MEDS ORDERED: NALOXONE 2 MG/2 ML INJ IV PRN (15:31)
[2019-04-21] MEDS ORDERED: ePHEDrine SULFATE 50 MG/1 ML INJ IV PRN (15:31)
--- NOTE | 2019-04-21 15:32 | Anesthesia Consultation ---
Anesthesia Consult and Med Hx Date of service: 04/21/19 - Airway Anesthetic Teeth Evaluation: Chipped ROM Head & Neck: Adequate Mental/Hyoid Distance: Adequate Mallampati Class: Class II Intubation Access Assessment: Probably Good - Pulmonary Exam CTA: Yes - Cardiac Exam Cardiac Exam: RRR - Pre-Operative Health Status ASA Pre-Surgery Classification: ASA2 Proposed Anesthetic Plan: Epidural - Pulmonary Hx Asthma: No COPD: No Hx Pneumonia: No - Cardiovascular System Hx Hypertension: No - Central Nervous System Hx Seizures: No Hx Psychiatric Problems: No - Endocrine Hx Renal Disease: No Hx End Stage Renal Disease: No Hx Hypothyroidism: No Hx Hyperthyroidism: No - Hematic Hx Anemia: No Hx Sickle Cell Disease: No - Other Systems Hx Alcohol Use: No
[2019-04-21] MEDS ORDERED: fentaNYL-BUPIV 2 MCG/ML-0.125% 200 MCG/100 ML BAG EPIDURAL SCH (16:00)
--- NOTE | 2019-04-21 16:19 | Procedure Note ---
OB Delivery Note - Delivery Date of Delivery: 04/21/19 Surgeon: AMITA MCGILL Estimated blood loss: 200cc - Vaginal Delivery presentation: vertex Delivery position: OA Delivery induction: cervidil Delivery augmentation: rupture of membranes, pitocin Delivery monitor: external FHT, external uterine Route of delivery: Delivery placenta: spontaneous Delivery cord: 3 umbilical vessels Episiotomy: none Delivery laceration: 2nd degree (perineal) Delivery repair: vicryl Anesthesia: epidural Delivery comments: Infant delivered OA and placed on Mom's chest for [id number] bonding and delayed cord clamping, cut by Dad - A at 1 minute: 8 at 5 minutes: 9 Infant Gender: Female (3421gms)
[2019-04-21] MEDS ORDERED: PROMETHAZINE 25 MG RECT SUPP PR PRN (16:21)
[2019-04-21] MEDS ORDERED: WITCH HAZEL/ GLYCERIN PAD TP PRN (16:21)
[2019-04-21] MEDS ORDERED: HYDROcodone/ACETAMINOPHEN 5-325 MG TAB PO PRN (16:21)
[2019-04-21] MEDS ORDERED: ONDANSETRON 4 MG/2 ML INJ IV PRN (16:21)
[2019-04-21] MEDS ORDERED: MAGNESIUM HYDROXIDE (MOM) ORAL LIQD UDC PO PRN (16:21)
[2019-04-21] MEDS ORDERED: ACETAMINOPHEN 325 MG TAB PO PRN (16:21)
[2019-04-21] MEDS ORDERED: LANOLIN/ZINC/DIMETHICONE (LANSINOH) 7 GM TP PRN (16:21)
[2019-04-21] MEDS ORDERED: diphenhydrAMINE 25 MG CAP PO PRN (16:21)
[2019-04-21] MEDS ORDERED: PROMETHAZINE 25 MG TAB PO PRN (16:21)
[2019-04-21] MEDS ORDERED: BENZOCAINE/MENTHOL 20/0.5% TOP SPRAY 56 GM TP PRN (16:21)
[2019-04-21] MEDS ORDERED: OXYTOCIN 20 UNIT/1000ML DRIP 20 UNITS/1,000 ML BAG IV SCH (17:00)
[2019-04-21] MEDS: IBUPROFEN 600 MG TAB PO SCH (23:06)
[2019-04-21] MEDS: FERROUS SULFATE 325 MG TAB PO SCH (23:07)
[2019-04-21] MEDS: DOCUSATE SODIUM 100 MG CAP PO SCH (23:07)
[2019-04-22 04:43] LABS: Hematocrit 27.6 % (30.3-42.9); Hemoglobin 8.6 gm/dl (10.1-14.3)
[2019-04-22] MEDS: IBUPROFEN 600 MG TAB PO SCH ×5 (05:25→23:29)
--- NOTE | 2019-04-22 08:52 | Progress Note ---
Assessment and Plan - Patient Problems (1) Chronic blood loss anemia Onset Date: 04/21/19 Current Visit: Yes Status: Chronic (2) (normal spontaneous vaginal delivery) Onset Date: 04/22/19 Current Visit: No Status: Resolved Plan to address problem: A: S/P - PPD #1 Doing well Asymptomatic anemia - stable P: May go home tomorrow. Subjective - Subjective Date of service: 04/22/19 Principal diagnosis: s/p - PPD #1 Interval history: Pt is feeling well without complaints. Bleeding improved. Patient reports: appetite normal, voiding normally, pain well controlled, flatus, ambulating normally, no dizzy ambulation, no nauseated [place]: doing well, nursing well, bottle feeding Objective - Vital Signs Latest vital signs: Vital Signs Temp Pulse Resp BP BP Pulse Ox 04/22/19 00:00 98.6 F 97 H 18 103/58 04/21/19 19:30 98.7 F 66 18 117/78 04/21/19 18:07 97.3 F L 73 115/74 100 04/21/19 17:09 97.6 F 04/21/19 17:07 81 100 04/21/19 17:06 74 129/74 04/21/19 17:02 79 99 04/21/19 16:57 86 100 04/21/19 16:54 85 109/67 04/21/19 16:52 88 99 04/21/19 16:48 84 77 L 04/21/19 16:47 96 H 100 04/21/19 16:42 85 100 04/21/19 16:37 79 100 04/21/19 16:35 70 107/69 04/21/19 16:32 100 H 100 04/21/19 16:27 71 115/68 100 04/21/19 16:19 86 80 L 04/21/19 16:18 85 92 04/21/19 16:14 85 100 04/21/19 16:09 86 100 04/21/19 16:04 82 100 04/21/19 16:01 89 116/77 04/21/19 15:58 96 H 115/70 04/21/19 15:55 69 113/69 04/21/19 15:52 81 89/61 04/21/19 15:49 68 93/58 04/21/19 15:46 80 103/59 04/21/19 15:43 72 101/58 04/21/19 15:41 65 100 04/21/19 15:40 72 99/56 04/21/19 15:37 88 97/57 04/21/19 15:36 83 99 04/21/19 15:34 68 103/58 04/21/19 15:31 70 100 04/21/19 15:27 64 92 04/21/19 15:26 80 98 04/21/19 15:21 76 L 04/21/19 15:20 55 L 99 04/21/19 14:53 65 100 04/21/19 14:47 77 101/55 04/21/19 14:45 83 99 04/21/19 14:40 80 98 04/21/19 14:35 76 98 04/21/19 14:30 79 97 04/21/19 14:25 89 98 04/21/19 14:20 79 97 04/21/19 14:16 76 108/75 04/21/19 14:15 80 98 04/21/19 14:10 88 98 04/21/19 14:05 89 97 04/21/19 14:03 97.5 F L 19 04/21/19 14:00 89 98 04/21/19 13:55 88 99 04/21/19 13:50 86 98 04/21/19 13:47 80 118/76 04/21/19 13:45 82 96 04/21/19 13:40 83 97 04/21/19 13:35 90 04/21/19 13:18 95 H 99 04/21/19 13:17 104 H 118/77 04/21/19 13:13 108 H 99 04/21/19 13:08 87 98 04/21/19 13:03 83 98 04/21/19 12:58 84 99 04/21/19 12:56 79 97/59 04/21/19 12:53 86 98 04/21/19 12:48 84 98 04/21/19 12:46 87 89/61 04/21/19 12:43 86 99 04/21/19 12:38 88 98 04/21/19 12:33 88 98 04/21/19 12:32 80 93 04/21/19 12:28 71 95 04/21/19 12:24 77 92 04/21/19 12:23 87 98 04/21/19 12:18 77 86 04/21/19 12:17 71 92/51 04/21/19 12:13 81 96 04/21/19 12:08 89 95 04/21/19 12:07 83 94 04/21/19 12:03 81 95 04/21/19 12:02 90 94 04/21/19 11:58 88 94 04/21/19 11:56 84 94 04/21/19 11:53 87 97 04/21/19 11:51 90 94 04/21/19 11:48 89 97 04/21/19 11:47 84 108/63 04/21/19 11:44 89 94 04/21/19 11:43 89 95 04/21/19 11:38 83 96 04/21/19 11:36 95 H 94 04/21/19 11:33 92 H 96 04/21/19 11:29 91 H 94 04/21/19 11:28 95 H 95 04/21/19 11:23 86 96 04/21/19 11:22 92 H 93 04/21/19 11:18 89 94 04/21/19 11:16 85 94/52 04/21/19 11:15 92 H 94 04/21/19 11:13 101 H 97 04/21/19 11:08 89 96 04/21/19 11:03 83 97 04/21/19 10:59 97.7 F 04/21/19 10:58 87 97 04/21/19 10:57 75 72 L 04/21/19 10:53 83 99 04/21/19 10:52 18 04/21/19 10:48 83 100 04/21/19 10:46 80 106/58 04/21/19 10:43 81 114/83 99 04/21/19 10:40 112 H 68 L 04/21/19 10:38 97 H 99 04/21/19 10:33 93 H 99 04/21/19 10:28 89 99 04/21/19 10:23 77 100 04/21/19 10:18 78 99 04/21/19 10:13 90 99 04/21/19 10:08 102 H 99 04/21/19 09:58 80 98 04/21/19 09:53 85 99 04/21/19 09:48 91 H 99 04/21/19 09:46 77 110/68 04/21/19 09:43 88 99 04/21/19 09:38 85 98 04/21/19 09:33 83 99 04/21/19 09:28 85 99 04/21/19 09:23 81 98 04/21/19 09:18 77 98 04/21/19 09:13 79 99 04/21/19 09:08 80 100 04/21/19 09:03 84 98 Intake and Output 04/21/19 04/22/19 04/22/19 22:59 06:59 14:59 Intake Total 200 240 Output Total 1800 Balance -1600 240 Intake: Oral 200 240 Output: Urine 1800 Void 1800 Other: Total, Intake Amount 200 240 Total, Output Amount 800 # Voids Void 1 1 Estimated Blood Loss 200 - Exam Breasts: Present: deferred Abdomen: Present: normal appearance, soft Uterus: Present: normal, firm, fundal height below umbilicus Extremities: Present: normal - Labs Labs: Abnormal lab results 04/22/19 Range/Units 04:22 Hgb 8.6 L (10.1-14.3) gm/dl Hct 27.6 L (30.3-42.9) % Laboratory Tests 04/20/19 04/20/19 04/22/19 20:40 20:40 04:22 WBC 9.6 RBC 4.43 Hgb 9.5 L 8.6 L Hct 30.8 27.6 L MCV 70 L MCH 22 L MCHC 31 RDW 18.2 H Plt Count 302 Blood Type B POSITIVE Antibody Screen Negative
[2019-04-22] MEDS: DOCUSATE SODIUM 100 MG CAP PO SCH ×2 (09:10→21:34)
[2019-04-22] MEDS: FERROUS SULFATE 325 MG TAB PO SCH ×2 (09:11→21:34)
[2019-04-22] MEDS: PRENATAL VIT27-FE FUMARATE-FOLIC ACID VIT TAB PO SCH (09:11)
--- NOTE | 2019-04-22 10:04 | Discharge Summary ---
Providers - Providers Date of Admission: 04/20/19 19:27 Date of discharge: 04/23/19 Attending physician: AMITA MCGILL Primary care physician: AMITA MCGILL Hospitalization Reason for admission: induction of labor, IUP at term Delivery: Episiotomy: none Laceration: 2nd degree Incision: normal Other procedures: none complications: none Discharge diagnosis: IUP at term delivered baby: female Hospital course: Unremarkable. Condition at discharge: Good Disposition: DC-01 TO HOME OR SELFCARE - Discharge Diagnoses (1) Chronic blood loss anemia Status: Chronic (2) (normal spontaneous vaginal delivery) Status: Resolved Plan - Discharge Medications Prescriptions: Ferrous Sulfate [Feosol 325 MG tab] 325 mg PO BID #60 tablet Ibuprofen [Motrin 600 MG tab] 600 mg PO Q6H #30 tablet Vit-Fe Fumar-FA [ Vitamin] 1 each PO QDAY #30 tablet - Provider Discharge Summary Activity: routine, no sex for 6 weeks, no heavy lifting 4 weeks, no strenuous exercise Diet: routine Instructions: routine Additional instructions: [] Smoking cessation referral if applicable(refer to patient education folder for contact #) [] Refer to [facility] Booklet Call your doctor immediately for: * Fever > 100.5 * Heavy vaginal bleeding ( >1 pad per hour) * Severe persistent headache * Shortness of breath * Reddened, hot, painful area to leg or breast * Drainage or odor from incision. * Keep incision clean and dry at all times and follow doctor's instructions regarding bathing/showering - Follow up plan Follow up: AMITA MCGILL MD [Primary Care Provider] - 6 Weeks
[2019-04-22] MEDS ORDERED: TETANUS,DIPH,PERTUSS(ACELL) VACCINE 0.5 ML SYRINGE IM ONE (16:21)
[2019-04-22] MEDS ORDERED: MEASLES, MUMPS & RUBELLA 12,500 UNIT/0.5 ML VACCINE SUB-Q ONE (16:21)
[2019-04-23] MEDS: IBUPROFEN 600 MG TAB PO SCH ×2 (05:14→08:11)
[2019-04-23] MEDS: DOCUSATE SODIUM 100 MG CAP PO SCH (08:11)
[2019-04-23] MEDS: FERROUS SULFATE 325 MG TAB PO SCH (08:11)
[2019-04-23] MEDS: PRENATAL VIT27-FE FUMARATE-FOLIC ACID VIT TAB PO SCH (08:11)
[2019-04-23 09:59] VITALS: BP 115/69
== END 2019-04-23 17:30 | disposition home or self-care (01) | DRG 807 ==
LOC: TRG 19:21 → LD 19:27 → OB 04-21 18:18
PROVIDERS: ADMIT Obstetrics & Gynecology; ATTEND Obstetrics & Gynecology
PROC: 10E0XZZ Delivery of Products of Conception, External Approach (ICD-10-PCS; principal; 2019-04-21)
PROC: 0KQM0ZZ Repair Perineum Muscle, Open Approach (ICD-10-PCS; 2019-04-21)
PROC: 3E0P7VZ Introduction of Hormone into Female Reproductive, Via Natural or Artificial Opening (ICD-10-PCS; 2019-04-21)
PROC: 3E0R3BZ Introduction of Anesthetic Agent into Spinal Canal, Percutaneous Approach (ICD-10-PCS; 2019-04-21)
PROC: 00HU33Z Insertion of Infusion Device into Spinal Canal, Percutaneous Approach (ICD-10-PCS; 2019-04-21)
PROC: 3E0234Z Introduction of Serum, Toxoid and Vaccine into Muscle, Percutaneous Approach (ICD-10-PCS; 2019-04-22)
DX: O99.824 Streptococcus B carrier state complicating childbirth (principal); Z37.0 Single live birth; O99.02 Anemia complicating childbirth; D50.0 Iron deficiency anemia secondary to blood loss (chronic); O70.1 Second degree perineal laceration during delivery; Z3A.40 40 weeks gestation of pregnancy; Z79.899 Other long term (current) drug therapy; Z23 Encounter for immunization
CPT/HCPCS: 36415; 59200; 85014; 85018; 85027; 86850; 86900; 86901; 96360; 96361; 96374; G0378; J0290; J0595; J2405; J2590; J3490; J7120

== ENCOUNTER 2019-05-02 15:23 | Emergency (ER) | payer SELFPAY ==
[2019-05-02 16:41] VITALS: BP 114/67
--- NOTE | 2019-05-02 22:38 | Emergency Department Report ---
ED General Adult HPI - General Chief complaint: Extremity Problem,Nontraumatic Stated complaint: RT LEG PAIN SINCE CHILD Time Seen by Provider: 05/02/19 22:31 Source: patient Mode of arrival: Ambulatory Limitations: No Limitations - History of Present Illness Initial comments: 28yo BF states that she been experiencing R leg pain since giving vaginally 04/21/19. She states that her leg aches when she is at rest and more during walking. She reports the pain as an 8 of 10. -: days(s) Location: lower extremity (R lower extremity) Severity scale (0 -10): 8 Quality: aching Consistency: constant Improves with: immobilization Worsens with: movement Treatments Prior to Arrival: none - Related Data Previous Rx's Medication Instructions Recorded Last Taken Type Ferrous Sulfate [Feosol 325 MG tab] 325 mg PO BID #60 tablet 10/15/17 1 Day Ago Rx ~04/19/19 ALBUTEROL Inhaler(NF) [VENTOLIN 2 puff IH BID #1 inha 04/06/18 Unknown Rx Inhaler(NF)] Ferrous Sulfate [Feosol 325 MG tab] 325 mg PO BID #60 tablet 04/22/19 Unknown Rx Ibuprofen [Motrin 600 MG tab] 600 mg PO Q6H #30 tablet 04/22/19 Unknown Rx Vit-Fe Fumar-FA [ 1 each PO QDAY #30 tablet 04/22/19 Unknown Rx Vitamin] Allergies Allergy/AdvReac Type Severity Reaction Status Date / Time No Known Allergies Allergy Verified 05/02/19 15:25 ED Review of Systems ROS: Stated complaint: RT LEG PAIN SINCE CHILD Other details as noted in HPI Comment: All other systems reviewed and negative Musculoskeletal: as per HPI ED Past Medical Hx - Past Medical History Previous Medical History?: No Hx Hypertension: No Hx Congestive Heart Failure: No Hx Diabetes: No Hx Deep Vein Thrombosis: No Hx Renal Disease: No Hx Sickle Cell Disease: No Hx Seizures: No Hx Asthma: No Hx COPD: No Hx HIV: No Additional medical history: Miscarriage December 06, 2016 - Surgical History Past Surgical History?: No - Social History Smoking Status: Unknown if ever smoked Substance Use Type: None - Medications Home Medications: Home Medications Medication Instructions Recorded Confirmed Last Taken Type Ferrous Sulfate [Feosol 325 MG tab] 325 mg PO BID #60 tablet 18 11/21/19 1 Day Ago Rx ~04/19/19 ALBUTEROL Inhaler(NF) [VENTOLIN 2 puff IH BID #1 inha 04/06/18 04/20/19 Unknown Rx Inhaler(NF)] Ferrous Sulfate [Feosol 325 MG tab] 325 mg PO BID #60 tablet 04/22/19 Unknown Rx Ibuprofen [Motrin 600 MG tab] 600 mg PO Q6H #30 tablet 04/22/19 Unknown Rx Vit-Fe Fumar-FA [ 1 each PO QDAY #30 tablet 04/22/19 Unknown Rx Vitamin] ED Physical Exam - General Limitations: No Limitations General appearance: alert, in no apparent distress - Head Head exam: Present: atraumatic, normocephalic - Eye Eye exam: Present: normal appearance, PERRL, EOMI Pupils: Present: normal accommodation - ENT ENT exam: Present: normal exam, normal orophraynx - Neck Neck exam: Present: normal inspection, full ROM. Absent: tenderness - Respiratory Respiratory exam: Present: normal lung sounds bilaterally. Absent: respiratory distress, wheezes - Cardiovascular Cardiovascular Exam: Present: regular rate, normal rhythm. Absent: tachycardia - GI/Abdominal GI/Abdominal exam: Present: soft. Absent: distended, tenderness - Rectal Rectal exam: Present: deferred - Extremities Exam Extremities exam: Present: normal inspection - Expanded Lower Extremity Exam Right Lower Leg exam: Present: full ROM, tenderness (R lower calf muscle tenderness and warmth; pain with calf squeeze and palpation), swelling Ankle exam: Present: normal inspection, full ROM. Absent: tenderness Foot/Toe exam: Present: normal inspection, full ROM. Absent: tenderness Gait: Positive: observed and normal - Back Exam Back exam: Present: normal inspection, full ROM. Absent: tenderness - Neurological Exam Neurological exam: Present: alert, altered, oriented X3 - Psychiatric Psychiatric exam: Present: normal affect, normal mood - Skin Skin exam: Present: dry, intact, other (increased warmth at the R calf muscle) ED Course Vital Signs 05/02/19 16:40 Temperature 98.0 F Pulse Rate 83 Respiratory 18 Rate Blood Pressure 114/67 O2 Sat by Pulse 99 Oximetry ED Medical Decision Making - Medical Decision Making 28yo BF states that she been experiencing R leg pain since giving vaginally 04/21/19. She states that her leg aches when she is at rest and more during walking. She reports the pain as an 8 of 10. Pt was informed that her symptoms are indicators for more labs and imaging. A venous duplex U/S was ordered and the pt eloped before the imaging could be obtained. Critical care attestation.: If time is entered above; I have spent that time in minutes in the direct care of this critically ill patient, excluding procedure time. ED Disposition Clinical Impression: Leg pain, right Disposition: Z-07 ELOPED Is pt being admited?: No Does the pt Need Aspirin: No Condition: Stable Referrals: PRIMARY CARE, [Primary Care Provider] - 3-5 Days
== END 2019-05-03 00:10 | disposition left against medical advice (07) ==
LOC: ED 15:23
DX: M79.604 Pain in right leg (principal); Z79.899 Other long term (current) drug therapy

== ENCOUNTER 2021-12-02 17:53 | Inpatient (IN) | payer SELFPAY ==
--- NOTE | 2021-12-02 20:14 | Ultrasound Report ---
ULTRASOUND BIOPHYSICAL PROFILE INDICATION / CLINICAL INFORMATION: BPP. 38 weeks 6 days. COMPARISON: None available. FINDINGS: BREATHING MOVEMENT = 2 GROSS BODY MOVEMENT = 2 TONE = 2 QUALITATIVE AMNIOTIC FLUID VOLUME = 2 TOTAL BIOPHYSICAL SCORE = 01/05 AMNIOTIC FLUID = Largest pocket measures 3.3 cm. PRESENTATION: Cephalic. HEART RATE (beats per minute): 147 IMPRESSION: biophysical profile = 01/05 Signer Name: Raciel Paez MD Signed: 12/02/2021 8:10 PM Workstation Name: [id number]
[2021-12-02] MEDS ORDERED: LOPERAMIDE 2 MG CAP PO PRN (21:43)
[2021-12-02] MEDS ORDERED: CARBOPROST TROMETHAMINE 250 MCG/1 ML INJ IM PRN (21:43)
[2021-12-02] MEDS ORDERED: OXYTOCIN 10 UNIT/1 ML INJ IM PRN (21:43)
[2021-12-02] MEDS ORDERED: miSOPROStol 200 MCG TAB PR PRN (21:43)
[2021-12-02] MEDS ORDERED: BUTORPHANOL 2 MG/1 ML INJ IV PRN ×2 (21:43→22:44)
[2021-12-02] MEDS ORDERED: METHYLERGONOVINE MALEATE 0.2 MG/ML VIAL IM PRN (21:43)
[2021-12-02] MEDS ORDERED: ePHEDrine SULFATE 50 MG/1 ML INJ IV PRN (21:43)
[2021-12-02] MEDS ORDERED: fentaNYL 100 MCG/2 ML INJ IV PRN (21:43)
[2021-12-02] MEDS ORDERED: ACETAMINOPHEN 325 MG TAB PO PRN (21:43)
[2021-12-02] MEDS ORDERED: TERBUTALINE 1 MG/1 ML INJ SUB-Q PRN (21:43)
[2021-12-02] MEDS ORDERED: MINERAL OIL 30 ML ORAL LIQD PO PRN (21:43)
[2021-12-02] MEDS ORDERED: LIDOCAINE (2%) 20 MG/1 ML VIAL 20 ML MDV INFILTRATI ONE (21:43)
[2021-12-02] MEDS ORDERED: LACTATED RINGERS 1,000 ML IV SCH (21:45)
[2021-12-02] MEDS ORDERED: OXYTOCIN DRIP 30 UNITS/500 ML BAG IV SCH (22:00)
--- NOTE | 2021-12-02 23:02 | History and Physical Report ---
History of Present Illness Date of examination: 12/02/21 Date of admission: 12/02/21 21:43 Chief complaint: Decreased movement History of present illness: The patient is a 31-year-old at 38-6/7 weeks gestation who presents to OB triage reporting decreased movement. There is no vaginal bleeding. There are irregular contractions. There is no leaking of fluid. In OB triage, nonstress test was reactive and biophysical profile was 10/10. However, OB ultrasound limited revealed a fetus in the 7th percentile and an amniotic fluid index of 2.7 cm. As such, this patient fulfilled the contemporary criteria for oligohydramnios and small for gestational age fetus. Cervix is 1 cm dilated. The patient was offered induction of labor to decrease the risk of stillbirth. The risks, alternatives, and benefits were explained the patient. She voiced understanding and wished to proceed. She is admitted to labor and delivery for induction of labor with Cytotec. Past History Past Medical History: no pertinent history Past Surgical History: no surgical history Family/Genetic History: none Social history: no significant social history - Obstetrical History Expected Date of Delivery: 12/10/21 Actual Gestation: 39 Week(s) 0 Day(s) : 4 Para: 2 Hx # Term Pregnancies: 2 Medications and Allergies Allergies Allergy/AdvReac Type Severity Reaction Status Date / Time No Known Allergies Allergy Verified 05/02/19 15:25 Home Medications Medication Instructions Recorded Confirmed Last Taken Type Ferrous Sulfate [Feosol 325 MG tab] 325 mg PO BID #60 tablet 10/15/17 04/20/19 1 Day Ago Rx ~04/19/19 ALBUTEROL Inhaler(NF) [VENTOLIN 2 puff IH BID #1 inha 04/06/18 04/20/19 Unknown Rx Inhaler(NF)] Ferrous Sulfate [Feosol 325 MG tab] 325 mg PO BID #60 tablet 04/22/19 Unknown Rx Ibuprofen [Motrin 600 MG tab] 600 mg PO Q6H #30 tablet 04/22/19 Unknown Rx Vit-Fe Fumar-FA [ 1 each PO QDAY #30 tablet 04/22/19 Unknown Rx Vitamin] Active Meds: Active Medications Acetaminophen (Acetaminophen 325 Mg Tab) 650 mg PO Q4H PRN PRN Reason: Pain, Mild (1-3) Butorphanol Tartrate (Butorphanol 2 Mg/1 Ml Inj) 2 mg IV Q2H PRN PRN Reason: Pain, Moderate(4-6) LABOR PAIN Carboprost Tromethamine (Carboprost Tromethamine 250 Mcg/1 Ml Inj) 250 mcg IM ONCE PRN PRN Reason: Uterine Bleeding Fentanyl (Fentanyl 100 Mcg/2 Ml Inj) 100 mcg IV Q2H PRN PRN Reason: Pain,Severe (7-10) LABOR PAIN Lactated Ringer's (Lactated Ringers) 1,000 mls @ 125 mls/hr IV DIRECT KALIA Oxytocin/Sodium Chloride (Pitocin/Ns 30 Unit/500ml) 30 units in 500 mls @ 40 mls/hr IV TITR KALIA; Protocol Methylergonovine Maleate (Methylergonovine Maleate 0.2 Mg/Ml Vial) 0.2 mg IM ONCE PRN PRN Reason: Uterine Bleeding Misoprostol (Misoprostol 25 Mcg Tab) 25 mcg PO Q4H KALIA Stop: 12/03/21 10:01 Terbutaline Sulfate (Terbutaline 1 Mg/1 Ml Inj) 0.25 mg SUB-Q ONCE PRN PRN Reason: Hyperstimulation/Hypertonicity Review of Systems All systems: negative - Vital Signs Vital signs: Vital Signs Pulse Pulse Ox 105 H 99 12/02/21 18:41 12/02/21 18:41 Temp Pulse Resp BP Pulse Ox 98.6 F 25 L 18 116/59 0 L 12/02/21 19:19 12/02/21 21:33 12/02/21 19:19 12/02/21 19:20 12/02/21 21:33 - Physical Exam Breasts: Positive: normal Cardiovascular: Regular rate Lungs: Positive: Normal air movement Abdomen: Positive: normal appearance Genitourinary (Female): Positive: normal external genitalia, normal perenium Vulva: both: normal Vagina: Positive: normal moisture Uterus: Positive: enlarged Adnexa: both: normal Anus/Rectum: Positive: normal perianal skin Extremities: Positive: normal Deep Tendon Reflex Grade: Normal +2 - Obstetrical FHR: category 1 Cervical Dilatation: 1 Cervical Effacement Percentage: 60 station: -3 Uterine Contraction Pattern: Irregular Results Result Diagrams: 12/02/21 23:00 All other labs normal. Ultrasound: report reviewed (OB Ultrasound Limited= SLIUP. Vertex. EFW= 2764 g (7th %ile). MEREDITH= 2.7 cm.), image reviewed Assessment and Plan - Patient Problems (1) 38 weeks gestation of Current Visit: Yes Status: Acute Plan to address problem: care is up-to-date at [facility]. records are to be obtained tomorrow by morning shift staff. GBS status is unknown at this time. There are no current risk factors. As such, no intrapartum GBS prophylaxis at this time. In the event that this patient is truly GBS positive based on records obtained tomorrow or she develops risk factors for GBS, then treat with penicillin for intrapartum GBS prophylaxis. (2) Oligohydramnios in browning in third trimester Current Visit: Yes Status: Acute Plan to address problem: Amniotic fluid index is 2.7 cm. As such, this patient's clinical scenario fulfills the contemporary criteria for oligohydramnios. In order to decrease the risk of stillbirth at this gestational age, induction of labor is recommended. (3) Small for gestational age fetus during in third trimester Current Visit: Yes Status: Acute Plan to address problem: Estimated weight is in the 7th percentile. At a minimum, this fulfills the contemporary criteria for small for gestational age fetus. No umbilical artery Dopplers at this time. Induction of labor is recommended. (4) Decreased movement Current Visit: Yes Status: Acute Plan to address problem: Upon admission, the patient reported decreased movement. Nonstress test was reactive. Biophysical profile was 10/10. However, at this gestational age (and and lieu of newly diagnosed oligohydramnios and small for gestational age fetus), there is nothing to gain in terms of lung maturity As such, and out of an abundance of caution, induction of labor is recommended to decrease the risk of stillbirth and lieu of this complaint of decreased movement. (5) Encounter for induction of labor Current Visit: Yes Status: Acute Plan to address problem: The patient cervical exam was 1 cm dilated. Cytotec 25 mcg orally is ordered to ripen cervix further. Consider the addition of Cook's catheter to ripen cervix further. (6) Anemia affecting in third trimester Current Visit: Yes Status: Acute Plan to address problem: Hemoglobin is 9.4. No blood transfusion at this time. Consider iron supplementation .
[2021-12-02] MEDS: miSOPROStol 25 MCG TAB PO SCH (23:05)
--- NOTE | 2021-12-03 00:32 | Ultrasound Report ---
ULTRASOUND OBSTETRIC LIMITED INDICATION / CLINICAL INFORMATION: stevan. Clinical Gestational Age (GA) in weeks, days: 38 weeks 6 days TECHNIQUE: Transabdominal. COMPARISON: 12/02/2021 FINDINGS: Single live intrauterine in cephalic presentation with heart rate of 147 bpm. m easurements correspond to a gestational age of 36 weeks and 4 days. Estimated weight of 2764 g. Amniotic fluid index measures 2.7 cm, which is diminished. IMPRESSION: 1. Diminished amniotic fluid index measuring 2.7 cm. 2. Single live intrauterine with ultrasound age of 36 weeks and 4 days. Estimated gary ght of 2764 g. 3. Other significant abnormality. Signer Name: Brenton Najera MD Signed: 12/03/2021 12:27 AM Workstation Name: [id number]
[2021-12-03 01:07] LABS: Hematocrit 30.2 % (30.3-42.9); Hemoglobin 9.4 gm/dl (10.1-14.3); Mean Corpuscular HGB Conc 31 % (30-34); Mean Corpuscular Volume 71 fl (79-97); Platelet Count 311 K/mm3 (140-440); Red Blood Count 4.26 M/mm3 (3.65-5.03)
[2021-12-03] MEDS: miSOPROStol 25 MCG TAB PO SCH ×3 (03:12→12:39)
[2021-12-03] MEDS ORDERED: miSOPROStol 25 MCG TAB ONE (12:06)
[2021-12-03] MEDS ORDERED: FLUCONAZOLE 100 MG TAB PO STA (15:27)
--- NOTE | 2021-12-03 15:36 | Progress Note ---
Assessment and Plan A: @39.2WKS ZACHARY 12/08/21 PER RECORDS MINIMAL CARE, NO APA CARE ( PT DECLINES DUE TO COST) IOL FOR DFM, IUGR, OLIGO CYTOTEC 4 DOSES GIVEN LAST AT 1200 GBS UNKNOWN CAT 1 TRACING YEAST NOTED ON GENITALIA P: CONTINUE IOL USING IV PITOCIN 4X4X30 ONCE ACTIVE LABOR START PCN FOR UNKNOWN GBS PO DIFLUCAN FOR YEAST 1 TAB EVERY 72 HRS X2 DOSES PAIN MANAGEMENT WITH EPIDURAL CONTINUE EFM/TOCO MONITORING ANTICIPATED DELIVERY TODAY Subjective - Subjective Date of service: 12/03/21 Principal diagnosis: IUGR, OLIGOHYDRAMNIOS Objective - Vital Signs Vital Signs: Vital Signs - 12hr 12/03/21 12/03/21 12/03/21 03:32 03:37 03:42 Temperature Pulse Rate 82 80 81 Respiratory Rate Blood Pressure Blood Pressure [Right] O2 Sat by Pulse 98 96 97 Oximetry O2 Sat by Pulse Oximetry [ Bilateral Throughout] 12/03/21 12/03/21 12/03/21 03:47 03:52 03:57 Temperature Pulse Rate 78 82 89 Respiratory Rate Blood Pressure Blood Pressure [Right] O2 Sat by Pulse 99 97 97 Oximetry O2 Sat by Pulse Oximetry [ Bilateral Throughout] 12/03/21 12/03/21 12/03/21 04:02 04:07 04:12 Temperature Pulse Rate 86 83 84 Respiratory Rate Blood Pressure Blood Pressure [Right] O2 Sat by Pulse 97 97 97 Oximetry O2 Sat by Pulse Oximetry [ Bilateral Throughout] 12/03/21 12/03/21 12/03/21 04:17 04:22 04:27 Temperature Pulse Rate 84 93 H 83 Respiratory Rate Blood Pressure Blood Pressure [Right] O2 Sat by Pulse 96 97 97 Oximetry O2 Sat by Pulse Oximetry [ Bilateral Throughout] 12/03/21 12/03/21 12/03/21 04:32 04:37 04:42 Temperature Pulse Rate 81 81 95 H Respiratory Rate Blood Pressure Blood Pressure [Right] O2 Sat by Pulse 95 98 97 Oximetry O2 Sat by Pulse Oximetry [ Bilateral Throughout] 12/03/21 12/03/21 12/03/21 04:47 04:52 04:57 Temperature Pulse Rate 83 83 91 H Respiratory Rate Blood Pressure Blood Pressure [Right] O2 Sat by Pulse 97 97 97 Oximetry O2 Sat by Pulse Oximetry [ Bilateral Throughout] 12/03/21 12/03/21 12/03/21 05:02 05:07 05:12 Temperature Pulse Rate 84 84 75 Respiratory Rate Blood Pressure Blood Pressure [Right] O2 Sat by Pulse 98 97 99 Oximetry O2 Sat by Pulse Oximetry [ Bilateral Throughout] 12/03/21 12/03/21 12/03/21 05:17 05:22 05:27 Temperature Pulse Rate 83 76 82 Respiratory Rate Blood Pressure Blood Pressure [Right] O2 Sat by Pulse 98 99 98 Oximetry O2 Sat by Pulse Oximetry [ Bilateral Throughout] 12/03/21 12/03/21 12/03/21 05:38 05:43 05:48 Temperature Pulse Rate 82 77 Respiratory Rate Blood Pressure Blood Pressure [Right] O2 Sat by Pulse 100 99 98 Oximetry O2 Sat by Pulse Oximetry [ Bilateral Throughout] 12/03/21 12/03/21 12/03/21 05:53 05:58 06:03 Temperature Pulse Rate 87 83 84 Respiratory Rate Blood Pressure Blood Pressure [Right] O2 Sat by Pulse 97 99 98 Oximetry O2 Sat by Pulse Oximetry [ Bilateral Throughout] 12/03/21 12/03/21 12/03/21 06:08 06:13 06:18 Temperature Pulse Rate 91 H 88 86 Respiratory Rate Blood Pressure Blood Pressure [Right] O2 Sat by Pulse 98 98 99 Oximetry O2 Sat by Pulse Oximetry [ Bilateral Throughout] 12/03/21 12/03/21 12/03/21 06:23 06:28 06:33 Temperature Pulse Rate 79 91 H 79 Respiratory Rate Blood Pressure Blood Pressure [Right] O2 Sat by Pulse 98 99 97 Oximetry O2 Sat by Pulse Oximetry [ Bilateral Throughout] 12/03/21 12/03/21 12/03/21 06:38 06:43 06:48 Temperature Pulse Rate 76 89 78 Respiratory Rate Blood Pressure Blood Pressure [Right] O2 Sat by Pulse 99 100 98 Oximetry O2 Sat by Pulse Oximetry [ Bilateral Throughout] 12/03/21 12/03/21 12/03/21 06:53 06:58 07:03 Temperature Pulse Rate 77 96 H 76 Respiratory Rate Blood Pressure Blood Pressure [Right] O2 Sat by Pulse 98 99 98 Oximetry O2 Sat by Pulse Oximetry [ Bilateral Throughout] 12/03/21 12/03/21 12/03/21 07:08 07:13 07:18 Temperature Pulse Rate 77 76 80 Respiratory Rate Blood Pressure Blood Pressure [Right] O2 Sat by Pulse 98 98 98 Oximetry O2 Sat by Pulse Oximetry [ Bilateral Throughout] 12/03/21 12/03/21 12/03/21 07:23 07:28 07:30 Temperature Pulse Rate 77 100 H 84 Respiratory Rate Blood Pressure 105/60 Blood Pressure [Right] O2 Sat by Pulse 98 98 Oximetry O2 Sat by Pulse Oximetry [ Bilateral Throughout] 12/03/21 12/03/21 12/03/21 07:33 07:42 07:47 Temperature 98.4 F Pulse Rate 76 90 83 Respiratory 16 Rate Blood Pressure Blood Pressure 105/60 [Right] O2 Sat by Pulse 99 99 99 Oximetry O2 Sat by Pulse 100 Oximetry [ Bilateral Throughout] 12/03/21 12/03/21 12/03/21 07:52 07:57 08:03 Temperature Pulse Rate 79 79 87 Respiratory Rate Blood Pressure Blood Pressure [Right] O2 Sat by Pulse 99 98 100 Oximetry O2 Sat by Pulse Oximetry [ Bilateral Throughout] 12/03/21 12/03/21 12/03/21 08:08 08:13 08:18 Temperature Pulse Rate 73 71 75 Respiratory Rate Blood Pressure Blood Pressure [Right] O2 Sat by Pulse 99 98 98 Oximetry O2 Sat by Pulse Oximetry [ Bilateral Throughout] 12/03/21 12/03/21 12/03/21 08:23 08:28 08:33 Temperature Pulse Rate 76 73 75 Respiratory Rate Blood Pressure Blood Pressure [Right] O2 Sat by Pulse 98 98 98 Oximetry O2 Sat by Pulse Oximetry [ Bilateral Throughout] 12/03/21 12/03/21 12/03/21 08:38 08:43 08:48 Temperature Pulse Rate 75 75 80 Respiratory Rate Blood Pressure Blood Pressure [Right] O2 Sat by Pulse 98 98 97 Oximetry O2 Sat by Pulse Oximetry [ Bilateral Throughout] 12/03/21 12/03/21 12/03/21 08:53 08:58 09:03 Temperature Pulse Rate 77 82 79 Respiratory Rate Blood Pressure Blood Pressure [Right] O2 Sat by Pulse 97 98 98 Oximetry O2 Sat by Pulse Oximetry [ Bilateral Throughout] 12/03/21 12/03/21 12/03/21 09:08 09:13 09:18 Temperature Pulse Rate 78 82 89 Respiratory Rate Blood Pressure Blood Pressure [Right] O2 Sat by Pulse 97 98 99 Oximetry O2 Sat by Pulse Oximetry [ Bilateral Throughout] 12/03/21 12/03/21 12/03/21 09:23 09:28 09:33 Temperature Pulse Rate 77 82 76 Respiratory Rate Blood Pressure Blood Pressure [Right] O2 Sat by Pulse 97 97 98 Oximetry O2 Sat by Pulse Oximetry [ Bilateral Throughout] 12/03/21 12/03/21 12/03/21 09:38 09:43 09:48 Temperature Pulse Rate 85 76 83 Respiratory Rate Blood Pressure Blood Pressure [Right] O2 Sat by Pulse 98 99 99 Oximetry O2 Sat by Pulse Oximetry [ Bilateral Throughout] - Exam Breasts: deferred Cardiovascular: Regular rate Abdomen: Present: normal appearance Vulva: both: normal (YEAST NOTED, ERYTHEMA) Uterus: Present: other (GRAVID) FHR: category 1 FHR comments: 125-130 Uterine Contraction Monitor Mode: External Cervical Dilatation: 3 (POSTERIOR) Cervical Effacement Percentage: 70 station: -3 Uterine Contraction Frequency (min): 1 OCCASIONALLY Uterine Contraction Pattern: Irregular (TO NONE) Uterine Contraction Intensity: Mild Extremities: normal Deep Tendon Reflex Grade: Normal +2 - Labs Labs: Abnormal Labs 12/02/21 23:00 Hgb 9.4 L Hct 30.2 L MCV 71 L MCH 22 L RDW 18.0 H Laboratory Results - last 24 hr 12/02/21 12/02/21 12/02/21 09:45 23:00 23:00 WBC 8.8 RBC 4.26 Hgb 9.4 L Hct 30.2 L MCV 71 L MCH 22 L MCHC 31 RDW 18.0 H Plt Count 311 SARS-CoV-2 (PCR) Negative Blood Type B POSITIVE Antibody Screen Negative - Results US- obstetric: report reviewed (MEREDITH 2.7CM, EFW 7%TILE)
[2021-12-03] MEDS ORDERED: ePHEDrine SULFATE 50 MG/1 ML INJ ONE (22:25)
[2021-12-03] MEDS ORDERED: NALOXONE 0.4 MG/1 ML INJ IV PRN (22:41)
[2021-12-03] MEDS ORDERED: fentaNYL-BUPIV 2 MCG/ML-0.125% 200 MCG/100 ML BAG EPIDURAL SCH (23:00)
--- NOTE | 2021-12-03 23:18 | Anesthesia Consultation ---
Anesthesia Consult and Med Hx Date of service: 12/03/21 - Airway Anesthetic Teeth Evaluation: Poor ROM Head & Neck: Adequate Mental/Hyoid Distance: Adequate Mallampati Class: Class II Intubation Access Assessment: Probably Good - Pulmonary Exam CTA: Yes - Cardiac Exam Cardiac Exam: RRR - Pre-Operative Health Status ASA Pre-Surgery Classification: ASA3 Proposed Anesthetic Plan: Epidural - Pulmonary Hx Smoking: No Hx Asthma: No Hx Respiratory Symptoms: No SOB: No COPD: No Home Oxygen Therapy: No Hx Pneumonia: No - Cardiovascular System Hx Hypertension: No - Central Nervous System Hx Seizures: No Hx Back Pain: Yes Hx Psychiatric Problems: No - Endocrine Hx Renal Disease: No Hx End Stage Renal Disease: No Hx Hypothyroidism: No Hx Hyperthyroidism: No - Hematic Hx Anemia: No Hx Sickle Cell Disease: No - Other Systems Hx Alcohol Use: No Hx Substance Use: No Hx Obesity: Yes
[2021-12-03] MEDS: ePHEDrine SULFATE 50 MG/1 ML INJ IV PRN ×2 (23:21→23:25)
--- NOTE | 2021-12-03 23:21 | Progress Note ---
Labor Epidural - Labor Epidural Start Time: 22:45 Stop Time: 23:02 Performed by:: BEVERLY BEST Procedure: Patient is requesting epidural for labor pain. H&P and labs reviewed. Procedure explained, questions answered, consent obtained. Patient placed in sitting position with monitors applied. Timeout performed immediately before start of procedure. Prep/drape in usual sterile fashion. Skin localized 3 mL 1% lidocaine at L[3]-L[4] interspace. 17-gauge Touhy epidural needle advanced to ELINOR with saline at [8] cm x 1 attempt. No blood/CSF noted via epidural needle. Epidural catheter advanced to [12] cm. Negative aspiration for blood and CSF via catheter, negative response to test dose 3 ml 1.5% lidocaine w/ Epi. Sterile dressing applied followed by tape reinforcement. Patient tolerated procedure well. No immediate complications noted.
[2021-12-04] MEDS ORDERED: ONDANSETRON 4 MG/2 ML INJ ONE (03:30)
[2021-12-04] MEDS: ePHEDrine SULFATE 50 MG/1 ML INJ IV PRN ×2 (04:02→04:33)
[2021-12-04] MEDS ORDERED: MINERAL OIL 30 ML ORAL LIQD ONE (05:34)
[2021-12-04] MEDS ORDERED: LANOLIN/ZINC/DIMETHICONE (LANSINOH) 7 GM TP PRN (05:58)
[2021-12-04] MEDS ORDERED: WITCH HAZEL/ GLYCERIN PAD TP PRN (05:58)
[2021-12-04] MEDS ORDERED: HYDROcodone/ACETAMINOPHEN 5-325 MG TAB PO PRN (05:58)
[2021-12-04] MEDS ORDERED: BENZOCAINE/MENTHOL 20/0.5% TOP SPRAY 56 GM TP PRN (05:58)
[2021-12-04] MEDS ORDERED: diphenhydrAMINE 25 MG CAP PO PRN (05:58)
[2021-12-04] MEDS ORDERED: PROMETHAZINE 25 MG TAB PO PRN (05:58)
--- NOTE | 2021-12-04 06:08 | Procedure Note ---
OB Delivery Note - Delivery Date of Delivery: 12/04/21 (0537) Surgeon: CHRISTIN ALMANZAR Estimated blood loss: 200cc - Vaginal Delivery presentation: vertex Delivery position: OA Intrapartum events: mult. late decelerations, mult.variable deceleratio Delivery induction: misoprostol Delivery augmentation: pitocin Delivery monitor: external FHT, external uterine Route of delivery: Delivery placenta: spontaneous Delivery cord: 3 umbilical vessels Episiotomy: none Delivery laceration: 1st degree Delivery repair: vicryl Anesthesia: epidural Delivery comments: of a live 6'5 male infant over a 1st degree periurethral and vaginal laceration under epidural anesthesia with Apgars of 8 and 9 at 0537 on 12/04/2021. directly to maternal abd/chest, skin to skin contact. Lacerations repaired with 2-0 Vicryl on a SH. Spontaneous delivery of placenta complete and intact with Hutson side presenting at 0543. Fundus is firm and midline located 5 below the U. Lochia is scant. Delayed cord clamping and cutting; Cord cut by the patient. Cord blood collected. Placenta to pathology. - A at 1 minute: 8 at 5 minutes: 9 Infant Gender: Male (6'5)
[2021-12-04] MEDS: IBUPROFEN 800 MG TAB PO SCH ×2 (10:23→16:36)
[2021-12-04] MEDS: PRENATAL VIT27-FE FUMARATE-FOLIC ACID VIT TAB PO SCH (10:23)
[2021-12-04 20:27] LABS: Hematocrit 29.6 % (30.3-42.9); Hemoglobin 9.3 gm/dl (10.1-14.3)
[2021-12-05] MEDS: IBUPROFEN 800 MG TAB PO SCH ×4 (01:03→23:43)
--- NOTE | 2021-12-05 09:11 | Progress Note ---
Assessment and Plan A: PPD # 1 - stable P: Plan discharge home in am Discharge instructions given Subjective - Subjective Date of service: 12/05/21 Principal diagnosis: PPD # 1 -stable Patient reports: appetite normal : doing well Objective - Vital Signs Latest vital signs: Vital Signs Temp Pulse Resp BP BP Pulse Ox Pulse Ox 12/05/21 01:25 98.1 F 87 18 114/66 99 12/04/21 20:30 99 12/04/21 18:18 98.2 F 83 12 99/63 100 12/04/21 09:10 97.7 F 77 12 116/68 99 99 Intake and Output 12/04/21 12/05/21 12/05/21 22:59 06:59 14:59 Intake Total 240 240 Output Total 1300 Balance -1060 240 Intake: Intake, Free Water 240 240 Output: Urine 1300 Indwelling Catheter 1300 Other: Total, Output Amount 600 # Voids Void 1 1 - Exam Breasts: Present: deferred Cardiovascular: Present: Regular rate Abdomen: Present: soft Vulva: both: normal Uterus: Present: fundal height below umbilicus Extremities: Present: normal Deep Tendon Reflex Grade: Normal +2 - Labs Labs: Abnormal lab results 12/04/21 Range/Units 19:30 Hgb 9.3 L (10.1-14.3) gm/dl Hct 29.6 L (30.3-42.9) %
--- NOTE | 2021-12-05 09:13 | Discharge Summary ---
Providers - Providers Date of Admission: 12/02/21 21:43 Date of discharge: 12/06/21 Attending physician: KELLIE LOPEZ Primary care physician: KELLIE LOPEZ Hospitalization Reason for admission: active labor Delivery: Laceration: 1st degree Other procedures: none complications: none Discharge diagnosis: IUP at term delivered baby: male Condition at discharge: Good Disposition: 01 HOME / SELF CARE / HOMELESS Plan - Provider Discharge Summary Activity: routine, no sex for 6 weeks, no strenuous exercise Diet: routine Instructions: routine Additional instructions: [] Smoking cessation referral if applicable(refer to patient education folder for contact #) [] Refer to [facility] Book[facility] Call your doctor immediately for: * Fever > 100.5 * Heavy vaginal bleeding ( >1 pad per hour) * Severe persistent headache * Shortness of breath * Reddened, hot, painful area to leg or breast * Drainage or odor from incision. * Keep incision clean and dry at all times and follow doctor's instructions regarding bathing/showering - Follow up plan Follow up: KELLIE LOPEZ MD [Primary Care Provider] - 6 Weeks
[2021-12-05] MEDS: PRENATAL VIT27-FE FUMARATE-FOLIC ACID VIT TAB PO SCH (12:33)
[2021-12-06] MEDS: IBUPROFEN 800 MG TAB PO SCH (05:30)
[2021-12-06 10:44] VITALS: BP 114/82
== END 2021-12-06 11:00 | disposition home or self-care (01) | DRG 806 ==
LOC: TRG 17:53 → APU 17:58 → TRG 21:43 → LD 21:43 → OB 12-04 07:57
PROVIDERS: ADMIT Obstetrics & Gynecology; ATTEND Obstetrics & Gynecology
PROC: 10E0XZZ Delivery of Products of Conception, External Approach (ICD-10-PCS; principal; 2021-12-04)
PROC: 0HQ9XZZ Repair Perineum Skin, External Approach (ICD-10-PCS; 2021-12-04)
PROC: 3E0R3BZ Introduction of Anesthetic Agent into Spinal Canal, Percutaneous Approach (ICD-10-PCS; 2021-12-04)
PROC: 00HU33Z Insertion of Infusion Device into Spinal Canal, Percutaneous Approach (ICD-10-PCS; 2021-12-04)
PROC: 3E0P7VZ Introduction of Hormone into Female Reproductive, Via Natural or Artificial Opening (ICD-10-PCS; 2021-12-04)
DX: O36.5930 Maternal care for other known or suspected poor fetal growth, third trimester, not applicable or unspecified (principal); O41.03X0 Oligohydramnios, third trimester, not applicable or unspecified; Z37.0 Single live birth; Z3A.39 39 weeks gestation of pregnancy; O36.8130 Decreased fetal movements, third trimester, not applicable or unspecified; O76 Abnormality in fetal heart rate and rhythm complicating labor and delivery; O70.0 First degree perineal laceration during delivery
CPT/HCPCS: 36415; 76815; 76816; 76819; 85014; 85018; 85027; 86850; 86900; 86901; 88307; G0378; J3490; J2405; J2590; J7120; U0003